=== PATIENT | male | born 1960 | race African-American/Black ===

== ENCOUNTER 2018-05-15 10:19 | Inpatient (IN) | payer OTHER ==
[~2018-05-15] VITALS: Ht 190.5 cm; Wt 102.2 kg
--- OUTSIDE RECORDS SUMMARY | 2018-05-15 10:23 | XMS REPORT | Clinical Summary ---
Author Author [facility] Organization [facility] Address Unknown Phone Unavailable Care Team Providers Care Ward Supervisor Name Role Phone Jeannette Perdomo MD PCP Allergies Comments Active Allergy Reactions Severity Noted Date Codeine Swelling 09/09/2016 Medications End Date Status Medication Sig Dispensed Refills Start Date Active carvedilol (COREG) 25 MG Take 25 mg by 0 tablet mouth 2 (two) times a day with meals. Active atorvastatin (LIPITOR) 40 Take 40 mg by 0 MG tablet mouth daily. Active omeprazole (PriLOSEC) 20 Take 20 mg by 0 MG capsule mouth daily. Active albuterol (PROAIR Inhale 2 0 HFA,PROVENTIL puffs every 4 HFA,VENTOLIN HFA) 90 (four) hours mcg/actuation inhaler as needed for wheezing. Active traZODone (DESYREL) 100 Take 100 mg 0 MG tablet by mouth nightly. Active guaifenesin/dextromethorp Take 20 mL by 0 razo (CHILD COUGH-CHEST mouth 2 (two) CONGEST DM ORAL) times a day as needed. Active warfarin (COUMADIN) 7.5 Take 1 tablet 30 tablet 1 04/06/201 MG tablet (7.5 mg 9 total) by mouth daily. 03/10/2018 Discontinued furosemide (LASIX) 20 mg Take 20 mg by 0 tablet mouth 2 (two) times a day. 03/06/2018 Discontinued lisinopril Take 20 mg by 0 (PRINIVIL,ZESTRIL) 20 mg mouth daily. tablet 04/06/2018 Discontinued amLODIPine (NORVASC) 5 mg Take 5 mg by 0 tablet mouth daily. 03/06/2018 Discontinued spironolactone Take 25 mg by 0 (ALDACTONE) 25 MG tablet mouth 2 (two) times a day. 04/06/2018 Discontinued fluticasone-salmeterol Inhale 1 puff 0 (ADVAIR) 250-50 mcg/dose 2 (two) times DISKUS a day. 12/22/2017 Discontinued warfarin (COUMADIN) 5 MG Take 5 mg by 0 tablet mouth daily. PT TAKES 5MG AND 1MG=TOTAL 6MG QD 12/22/2017 Discontinued warfarin (COUMADIN) 1 MG Take 1 mg by 0 tablet mouth daily. 05/24/2017 ipratropium-albuterol Take 3 mL by 540 mL 0 (DUO-NEB) 0.5-2.5 mg/mL nebulization 8 nebulizer every 4 (four) hours for 30 days. 05/25/2017 potassium chloride Take 2 60 capsule 0 (MICRO-K) 10 MEQ CR capsules (20 8 capsule mEq total) by mouth daily for 30 days. 12/28/2017 levoFLOXacin (LEVAQUIN) Take 1 tablet 6 tablet 0 500 MG tablet (500 mg 8 total) by mouth nightly for 6 days. 01/21/2018 ipratropium-albuterol Take 3 mL by 3 mL 2 (DUO-NEB) 0.5-2.5 mg/mL nebulization 8 nebulizer Every 4 hours while awake as needed (RT) for wheezing for up to 30 days. 01/21/2018 albuterol (PROAIR Inhale 2 18 g 11 HFA,PROVENTIL puffs every 6 8 HFA,VENTOLIN HFA) 90 (six) hours mcg/actuation inhaler as needed for wheezing for up to 30 days. 12/27/2017 methylPREDNISolone follow 21 tablet 0 (MEDROL, STACY,) 4 mg package 8 tablet directions 03/10/2018 Discontinued warfarin (COUMADIN) 4 MG Take 6 mg by 0 tablet mouth every morning. 04/06/2018 Discontinued predniSONE (DELTASONE) 20 Take 20 mg by 0 mg tablet mouth daily. 04/04/2018 Discontinued cefuroxime (CEFTIN) 500 Take 1 tablet 0 MG tablet by mouth 2 8 (two) times a day. FOR 10 DAYS 04/06/2018 Discontinued warfarin (COUMADIN) 2.5 Take 4 120 tablet 0 MG tablet tablets (10 8 mg total) by mouth daily for 30 days. 04/10/2018 lisinopril Take 1 tablet 30 tablet 0 (PRINIVIL,ZESTRIL) 5 mg (5 mg total) 8 tablet by mouth daily for 30 days. 04/09/2018 furosemide (LASIX) 20 mg Take 3 90 tablet 0 tablet tablets (60 8 mg total) by mouth daily for 30 days. 04/13/2018 benzonatate (TESSALON) Take 1 21 capsule 0 100 MG capsule capsule (100 9 mg total) by mouth 3 (three) times a day as needed for cough for up to 7 days. 05/07/2018 fluticasone-vilanterol Inhale 1 1 each 1 (BREO ELLIPTA) 100-25 inhalations 9 mcg/dose blister with once daily device powder for for 30 days. inhalation 04/12/2018 predniSONE (DELTASONE) 20 Take 1 tablet 5 tablet 0 mg tablet (20 mg total) 9 by mouth daily for 5 days. 05/07/2018 nicotine (NICODERM CQ) 21 Place 1 patch 30 patch 0 mg/24 hr on the skin 9 daily for 30 days. 05/06/2018 aspirin (ECOTRIN) 81 MG Take 1 tablet 30 tablet 0 enteric coated tablet (81 mg total) 9 by mouth daily for 30 days. Active Problems Problem Noted Date A-fib 04/05/2018 Subtherapeutic international normalized ratio (INR) 03/08/2018 Congestive heart failure 03/06/2018 Influenza A 04/24/2017 COPD (chronic obstructive pulmonary disease) 09/09/2016 Encounters Care Team Description Date Type Specialty Claude Interiano MD Teqwimuah, Remy, DO Al-Lahiq, Maha, MD COPD exacerbation (HCC) (Primary Dx); SOB (shortness of breath); Acute on chronic congestive heart failure, unspecified heart failure type (HCC) 04/04/2018 [facility] General Internal Medicine - Encounter 04/06/2018 Nelia Duran MD Yerramadha, Muralidhar Reddy, MD Acute on chronic combined systolic and diastolic congestive heart failure (HCC) (Primary Dx); Congestive heart failure, unspecified HF chronicity, unspecified heart failure type (HCC); Dyspnea, unspecified type; Chronic obstructive pulmonary disease, unspecified COPD type (HCC); Subtherapeutic anticoagulation; S/P MVR (mitral valve replacement); Essential hypertension, benign 03/06/2018 [facility] Internal Medicine - Encounter 03/10/2018 03/06/2018 Travel Yi Drummond MD Yerramadha, Muralidhar Reddy, MD COPD exacerbation (Primary Dx); Acute bronchitis, unspecified organism 12/19/2017 [facility] General Surgery - Encounter 12/22/2017 after 05/14/2017 Immunizations Name Dates Previously Given Next Due FLUCELVAX QUAD PF (0.5mL 12/22/2017, 04/15/2017 syringe) Pneumococcal Conjugate 04/15/2017 [facility] Social History Date Tobacco Use Types Packs/Day Years Used Current Every Day Smoker Cigarettes 0.25 40 Smokeless Tobacco: Never Used Tobacco Cessation: Ready to Quit: No; Counseling Given: Yes Alcohol Use Drinks/Week oz/Week Comments Yes 12 Glasses of 9.6 wine 4 Cans of beer Sex Assigned at Date Recorded Not on file Industry Job Start Date Occupation Not on file Not on file Not on file Travel End Travel History Travel Start No recent travel history available. Last Filed Vital Signs Time Taken Vital Sign Reading 04/06/2018 11:06 AM DONOR SERVICES COORDINATOR Blood Pressure 116/76 04/06/2018 11:06 AM DONOR SERVICES COORDINATOR Pulse 86 04/06/2018 11:06 AM DONOR SERVICES COORDINATOR Temperature 36.4 C (97.5 F) 04/06/2018 11:06 AM DONOR SERVICES COORDINATOR Respiratory Rate 16 04/06/2018 11:06 AM DONOR SERVICES COORDINATOR Oxygen Saturation 97% - Inhaled Oxygen - Concentration 04/06/2018 5:00 AM DONOR SERVICES COORDINATOR Weight 96.6 kg (213 lb) 04/04/2018 10:55 AM DONOR SERVICES COORDINATOR Height 188 cm (6' 2") 04/06/2018 5:00 AM DONOR SERVICES COORDINATOR Body Mass Index 27.35 Plan of Treatment Health Maintenance Due Date Last Done Comments SHINGLES VACCINES (1 of 06/06/2011 2) COLON CANCER SCREENING 04/15/2027 04/15/2017 INFLUENZA VACCINE Completed 12/22/2017, 04/15/2017 Implants Device Identifier Shelf Expiration Date Model / Serial / Lot Implanted Type Area Manufactur er Valve Valve Valve Valve Procedures Comments Procedure Name Priority Date/Time Associated Diagnosis PROTHROMBIN TIME WITH INR Routine 04/06/2018 4:45 AM DONOR SERVICES COORDINATOR PROTHROMBIN TIME WITH INR Routine 04/05/2018 9:26 AM DONOR SERVICES COORDINATOR ESTIMATED GFR Routine 04/05/2018 4:49 AM DONOR SERVICES COORDINATOR BASIC METABOLIC PANEL Routine 04/05/2018 4:49 AM DONOR SERVICES COORDINATOR HC COMPLETE BLD COUNT Routine 04/05/2018 W/AUTO DIFF 4:[address] ANGIOGRAM PE CHEST STAT 04/04/2018 5:10 PM DONOR SERVICES COORDINATOR XR CHEST 1 VW PORTABLE STAT 04/04/2018 1:17 PM DONOR SERVICES COORDINATOR RESPIRATORY PATHOGEN Routine 04/04/2018 PANEL 11:46 AM DONOR SERVICES COORDINATOR INFLUENZA ANTIGEN TEST, Routine 04/04/2018 REFLEX NEGATIVE TO RPP 11:46 AM DONOR SERVICES COORDINATOR ECG ED PRELIMINARY Routine 04/04/2018 INTERPRETATION 11:31 AM DONOR SERVICES COORDINATOR ESTIMATED GFR STAT 04/04/2018 11:23 AM DONOR SERVICES COORDINATOR B NATRIURETIC PEPTIDE STAT 04/04/2018 11:23 AM DONOR SERVICES COORDINATOR TROPONIN STAT 04/04/2018 11:23 AM DONOR SERVICES COORDINATOR HEPATIC FUNCTION PANEL STAT 04/04/2018 11:23 AM DONOR SERVICES COORDINATOR BASIC METABOLIC PANEL STAT 04/04/2018 11:23 AM DONOR SERVICES COORDINATOR PARTIAL THROMBOPLASTIN STAT 04/04/2018 TIME (PTT) 11:23 AM DONOR SERVICES COORDINATOR PROTHROMBIN TIME WITH INR STAT 04/04/2018 11:23 AM DONOR SERVICES COORDINATOR HC COMPLETE BLD COUNT STAT 04/04/2018 W/AUTO DIFF 11:23 AM DONOR SERVICES COORDINATOR ECG 12-LEAD STAT 04/04/2018 11:06 AM DONOR SERVICES COORDINATOR PROTHROMBIN TIME WITH INR Routine 03/10/2018 5:45 AM DONOR SERVICES COORDINATOR ANTI XA, UNFRACTIONATED Routine 03/10/2018 5:45 AM DONOR SERVICES COORDINATOR ESTIMATED GFR Routine 03/10/2018 4:26 AM DONOR SERVICES COORDINATOR HC COMPLETE BLD COUNT Routine 03/10/2018 W/AUTO DIFF 4:26 AM DONOR SERVICES COORDINATOR BASIC METABOLIC PANEL Routine 03/10/2018 4:26 AM DONOR SERVICES COORDINATOR ESTIMATED GFR Routine 03/09/2018 5:38 AM DONOR SERVICES COORDINATOR ANTI XA, UNFRACTIONATED Routine 03/09/2018 5:38 AM DONOR SERVICES COORDINATOR HC COMPLETE BLD COUNT Routine 03/09/2018 W/AUTO DIFF 5:38 AM DONOR SERVICES COORDINATOR BASIC METABOLIC PANEL Routine 03/09/2018 5:38 AM DONOR SERVICES COORDINATOR PROTHROMBIN TIME WITH INR Routine 03/09/2018 5:38 AM DONOR SERVICES COORDINATOR ANTI XA, UNFRACTIONATED Timed 03/08/2018 3:00 PM DONOR SERVICES COORDINATOR ANTI XA, UNFRACTIONATED Timed 03/08/2018 9:06 AM DONOR SERVICES COORDINATOR ESTIMATED GFR Routine 03/08/2018 2:10 AM DONOR SERVICES COORDINATOR HC COMPLETE BLD COUNT Routine 03/08/2018 W/AUTO DIFF 2:10 AM DONOR SERVICES COORDINATOR BASIC METABOLIC PANEL Routine 03/08/2018 2:10 AM DONOR SERVICES COORDINATOR PROTHROMBIN TIME WITH INR Routine 03/08/2018 2:10 AM DONOR SERVICES COORDINATOR ANTI XA, UNFRACTIONATED Routine 03/08/2018 2:10 AM DONOR SERVICES COORDINATOR ANTI XA, UNFRACTIONATED Routine 03/07/2018 7:14 PM DONOR SERVICES COORDINATOR ANTI XA, UNFRACTIONATED Timed 03/07/2018 8:34 AM DONOR SERVICES COORDINATOR ANTI XA, UNFRACTIONATED Routine 03/07/2018 1:33 AM DONOR SERVICES COORDINATOR MAGNESIUM LEVEL Routine 03/07/2018 1:33 AM DONOR SERVICES COORDINATOR ESTIMATED GFR Routine 03/07/2018 1:33 AM DONOR SERVICES COORDINATOR PROTHROMBIN TIME WITH INR Routine 03/07/2018 1:33 AM DONOR SERVICES COORDINATOR COMPREHENSIVE METABOLIC Routine 03/07/2018 PANEL 1:33 AM DONOR SERVICES COORDINATOR HC COMPLETE BLD COUNT Routine 03/07/2018 W/AUTO DIFF 1:33 AM DONOR SERVICES COORDINATOR ANTI XA, UNFRACTIONATED Routine 03/06/2018 6:55 PM DONOR SERVICES COORDINATOR ECHOCARDIOGRAM 2D Routine 03/06/2018 COMPLETE W MMODE SPECTRAL 5:25 PM DONOR SERVICES COORDINATOR COLOR DOPPLER ([id number]) TROPONIN Timed 03/06/2018 4:25 PM DONOR SERVICES COORDINATOR ANTI XA, UNFRACTIONATED Routine 03/06/2018 11:40 AM DONOR SERVICES COORDINATOR TROPONIN Timed 03/06/2018 11:40 AM DONOR SERVICES COORDINATOR XR CHEST 1 VW PORTABLE STAT 03/06/2018 9:24 AM DONOR SERVICES COORDINATOR ESTIMATED GFR STAT 03/06/2018 8:59 AM DONOR SERVICES COORDINATOR B NATRIURETIC PEPTIDE STAT 03/06/2018 8:59 AM DONOR SERVICES COORDINATOR TROPONIN STAT 03/06/2018 8:59 AM DONOR SERVICES COORDINATOR CREATINE KINASE, TOTAL STAT 03/06/2018 (CPK) 8:59 AM DONOR SERVICES COORDINATOR COMPREHENSIVE METABOLIC STAT 03/06/2018 PANEL 8:59 AM DONOR SERVICES COORDINATOR PARTIAL THROMBOPLASTIN STAT 03/06/2018 TIME (PTT) 8:59 AM DONOR SERVICES COORDINATOR PROTHROMBIN TIME WITH INR STAT 03/06/2018 8:59 AM DONOR SERVICES COORDINATOR HC COMPLETE BLD COUNT STAT 03/06/2018 W/AUTO DIFF 8:59 AM DONOR SERVICES COORDINATOR ECG 12-LEAD STAT 03/06/2018 8:52 AM DONOR SERVICES COORDINATOR ECG ED PRELIMINARY Routine 03/06/2018 INTERPRETATION 8:52 AM DONOR SERVICES COORDINATOR SMEAR REVIEW Routine 12/22/2017 5:18 AM CDT ESTIMATED GFR Routine 12/22/2017 5:18 AM CDT HC COMPLETE BLD COUNT Routine 12/22/2017 W/AUTO DIFF 5:18 AM CDT BASIC METABOLIC PANEL Routine 12/22/2017 5:18 AM CDT PROTHROMBIN TIME WITH INR Routine 12/22/2017 5:18 AM CDT SMEAR REVIEW Routine 12/21/2017 5:25 AM CDT ESTIMATED GFR Routine 12/21/2017 5:25 AM CDT MAGNESIUM LEVEL Routine 12/21/2017 5:25 AM CDT HC COMPLETE BLD COUNT Routine 12/21/2017 W/AUTO DIFF 5:25 AM CDT BASIC METABOLIC PANEL Routine 12/21/2017 5:25 AM CDT PROTHROMBIN TIME WITH INR Routine 12/21/2017 5:25 AM CDT XR CHEST 1 VW PORTABLE Routine 12/20/2017 6:12 AM CDT SMEAR REVIEW Routine 12/20/2017 4:18 AM CDT ESTIMATED GFR Routine 12/20/2017 4:18 AM CDT MAGNESIUM LEVEL Routine 12/20/2017 4:18 AM CDT PROTHROMBIN TIME WITH INR Routine 12/20/2017 4:18 AM CDT COMPREHENSIVE METABOLIC Routine 12/20/2017 PANEL 4:18 AM CDT HC COMPLETE BLD COUNT Routine 12/20/2017 W/AUTO DIFF 4:18 AM CDT HEMOGLOBIN A1C Routine 12/20/2017 4:10 AM CDT ESTIMATED GFR STAT 12/19/2017 8:20 PM CDT BASIC METABOLIC PANEL STAT 12/19/2017 8:20 PM CDT PHOSPHORUS LEVEL STAT 12/19/2017 8:20 PM CDT MAGNESIUM LEVEL STAT 12/19/2017 8:20 PM CDT IONIZED CALCIUM STAT 12/19/2017 8:20 PM CDT TROPONIN Routine 12/19/2017 6:50 PM CDT PROTHROMBIN TIME WITH INR STAT 12/19/2017 6:50 PM CDT ECG 12-LEAD Routine 12/19/2017 1:33 PM CDT XR CHEST 1 VW PORTABLE STAT 12/19/2017 1:32 PM CDT ESTIMATED GFR STAT 12/19/2017 1:08 PM CDT B NATRIURETIC PEPTIDE STAT 12/19/2017 1:08 PM CDT TROPONIN STAT 12/19/2017 1:08 PM CDT COMPREHENSIVE METABOLIC STAT 12/19/2017 PANEL 1:08 PM CDT HC COMPLETE BLD COUNT STAT 12/19/2017 W/AUTO DIFF 1:08 PM CDT ECG 12-LEAD STAT 12/19/2017 1:02 PM CDT ECG ED PRELIMINARY Routine 12/19/2017 INTERPRETATION 12:59 PM CDT CA CRITICAL CARE, E/M Routine 12/19/2017 30-74 MINUTES 12:59 PM CDT after 05/14/2017 Results * Prothrombin time with INR (04/06/2018 4:45 AM DONOR SERVICES COORDINATOR) Only the most recent of 12 results within the time period is included. Prothrombin time 30.6 (H) 11.5 - 14.5 sec [facility] INR 3.0 [facility] Comment: [facility] The International Normalized Ratio (INR) is a therapeutic monitoring tool for patients who are stable on oral anticoagulant therapy. An INR of 2.0-3.0 is suggested for deep vein thrombosis/pulmonary embolism. Specimen Blood Performing Organization Address [facility] Phone Number [facility] [address] [place] [address] [place] [address] PATHOLOGY AND GENOMIC MEDICINE [address] * Estimated GFR (04/05/2018 4:49 AM DONOR SERVICES COORDINATOR) Only the most recent of 12 results within the time period is included. Estimated GFR 86 mL/min/1.73 m2 [facility] Comment: [facility] CatergoryUnitsInte rpretation G1 >=90 Normal or high G2 60-89Mildly decreased [id number] Mildly to moderately decreased [id number] Moderately to severely decreased G4 15-29Severely decreased G5 <15Kidney failure The eGFR was calculated using the Chronic Kidney Disease Epidemiology Collaboration (CKD-EPI) equation. Interpretation is based on recommendations of the National Kidney Foundation-Kidney Disease Outcomes Quality Initiative (NKF-KDOQI) published in 2014. Specimen Plasma specimen Performing Organization Address [facility] Phone Number [address] [place] [address] PATHOLOGY AND [facility] MEDICINE [address] * CBC with platelet and differential (04/05/2018 4:49 AM DONOR SERVICES COORDINATOR) Only the most recent of 11 results within the time period is included. WBC 9.84 4.50 - 11.00 k/uL [facility] RBC 4.11 (L) 4.40 - 6.00 m/uL [facility] HGB 12.6 (L) 14.0 - 18.0 g/dL [facility] HCT 37.8 (L) 41.0 - 51.0 % [facility] MCV 92.0 82.0 - 100.0 fL [facility] MCH 30.7 27.0 - 34.0 pg [facility] MCHC 33.3 31.0 - 37.0 g/dL [facility] RDW - SD 46.9 37.0 - 55.0 fL [facility] MPV 9.6 8.8 - 13.2 fL [facility] Platelet count 231 150 - 400 k/uL [facility] Nucleated RBC 0.00 /100 WBC [facility] Neutrophils 85.7 (H) 39.0 - 69.0 % [facility] Lymphocytes 9.0 (L) 25.0 - 45.0 % [facility] Monocytes 4.7 0.0 - 10.0 % [facility] Eosinophils 0.0 0.0 - 5.0 % [facility] Basophils 0.1 0.0 - 1.0 % [facility] Specimen Blood Performing Organization Address City/[facility]/Zipcode Phone Number [facility] [place] [place] [id number] [place] [address] [place] [address] PATHOLOGY AND GENOMIC MEDICINE [facility] [id number] [place] [address] * Basic metabolic panel (04/05/2018 4:49 AM DONOR SERVICES COORDINATOR) Only the most recent of 8 results within the time period is included. Sodium 140 135 - 148 mEq/L [facility] Potassium 5.1 (H) 3.5 - 5.0 mEq/L [facility] Chloride 104 98 - 112 mEq/L [facility] CO2 27 24 - 31 mEq/L [facility] Anion gap 9@ANIO 7 - 15 mEq/L [facility] BUN 18 6 - 20 mg/dL [facility] Creatinine 1.10 0.70 - 1.20 mg/dL [facility] Glucose 145 (H) 65 - 99 mg/dL [facility] Calcium 8.9 8.3 - 10.2 mg/dL [facility] Specimen Plasma specimen Performing Organization Address City/State/Zipcode [place] [address] [place] [address] PATHOLOGY AND GENOMIC MEDICINE [facility] [address] [place] [address] [facility] * CT Angiogram Pe Chest (04/04/2018 5:10 PM DONOR SERVICES COORDINATOR) Addenda Addendum by Emil Arellano MD on 04/12/2018 11:13 AM ADDENDUM #1 CT scans were performed using radiation dose reduction techniques. Technical factors were evaluated and adjusted to ensure appropriate moderation of exposure.Automated dose management technology was applied to adjust radiation exposure while achieving a diagnostic quality image.CT imaging was performed with iterative reconstruction techniques and/or automated exposure control to reduce radiation dose. Narrative Performed At EXAM: CT ANGIOGRAM PE CHEST RADIANT DATE: 04/04/2018 4:56 PM COMPARISON: Noncontrast CT chest April 17, 2017, CTA chest March 08, 2017 CLINICAL DATA:PE r o TECHNIQUE: A CT angiogram (CTA) of the pulmonary arteries and chest was performed.During bolus infusion of intravenous contrast, thin-section contiguous transaxial images were obtained through the thorax.In addition, multiplanar and three dimensional (3D) reformations through the pulmonary arterial tree were generated from the acquisition scanner and reviewed. IMPRESSION: No pulmonary emboli are identified. There is no regional adenopathy. Status post mitral valve replacement. Limited evaluation of the upper abdomen is unremarkable. Mild/moderate emphysematous changes are present. There is dependent atelectasis at the left lung base. Lungs are otherwise clear. Trace pleural effusion bilaterally, tracking along the major fissure on the right. The appearance is similar to prior exam. No suspicious osseous lesions are seen. [facility]-[id number] Procedure Note Interface, Radiology Results Incoming - 04/04/2018 6:21 PM DONOR SERVICES COORDINATOR EXAM: CT ANGIOGRAM PE CHEST DATE: 04/04/2018 4:56 PM COMPARISON: Noncontrast CT chest April 17, 2017, CTA chest March 08, 2017 CLINICAL DATA: PE r o TECHNIQUE: A CT angiogram (CTA) of the pulmonary arteries and chest was performed. During bolus infusion of intravenous contrast, thin-section contiguous transaxial images were obtained through the thorax. In addition, multiplanar and three dimensional (3D) reformations through the pulmonary arterial tree were generated from the acquisition scanner and reviewed. IMPRESSION: No pulmonary emboli are identified. There is no regional adenopathy. Status post mitral valve replacement. Limited evaluation of the upper abdomen is unremarkable. Mild/moderate emphysematous changes are present. There is dependent atelectasis at the left lung base. Lungs are otherwise clear. Trace pleural effusion bilaterally, tracking along the major fissure on the right. The appearance is similar to prior exam. No suspicious osseous lesions are seen. [facility]-[id number] Performing Organization Address [facility] Phone Number [employer] [address] [place] [address] * XR Chest 1 Vw Portable (04/04/2018 1:17 PM DONOR SERVICES COORDINATOR) Only the most recent of 4 results within the time period is included. Narrative Performed At EXAMINATION:XR CHEST 1 VW PORTABLE RADIANT CLINICAL HISTORY: 57 years MaleSOBCHF COPD COMPARISON:03/06/2018 IMPRESSION: 1.There are postoperative changes related to mitral valve replacement. 2.The heart is slightly enlarged. 3.There is no evidence pulmonary edema. There are no focal consolidations. Pleural thickening at the left costophrenic sulcus is unchanged. 4.Left cervical rib. [facility]-[id number] Procedure Note Hm Interface, Radiology Results Incoming - 04/04/2018 1:25 PM DONOR SERVICES COORDINATOR EXAMINATION: XR CHEST 1 VW PORTABLE CLINICAL HISTORY: 57 years Male SOB CHF COPD COMPARISON: 03/06/2018 IMPRESSION: 1. There are postoperative changes related to mitral valve replacement. 2. The heart is slightly enlarged. 3. There is no evidence pulmonary edema. There are no focal consolidations. Pleural thickening at the left costophrenic sulcus is unchanged. 4. Left cervical rib. [facility]-[id number] Performing Organization Address [facility] Phone Number [employer] [address] [place] [address] * Respiratory pathogen panel (04/04/2018 11:46 AM DONOR SERVICES COORDINATOR) Respiratory pathogen Negative for all pathogens [facility] panel [facility]: [facility] Negative for Adenovirus Negative for Coronavirus HKU1 Negative for Coronavirus NL63 Negative for Coronavirus 229E Negative for Coronavirus OC43 Negative for Human Metapneumovirus Negative for Rhinovirus/Enterovirus Negative for Influenza A Negative for Influenza A/H1 Negative for Influenza A/H3 Negative for Influenza A/H1-2009 Negative for Influenza B Negative for Parainfluenza Virus 1 Negative for Parainfluenza Virus 2 Negative for Parainfluenza Virus 3 Negative for Parainfluenza Virus 4 Negative for Respiratory Syncytial Virus Negative for Bordetella pertussis Negative for Chlamydophila pneumoniae Negative for Mycoplasma pneumoniae This real-time PCR assay detects the presence of nucleic acids (RNA or DNA) for the respiratory pathogens listed. A result of "Not-detected" does not exclude the possibility of the presence of one or more pathogens at concentrations less than the detectable limits of the assay. Comment: Specimen Information Specimen Source: Nares Specimen Site: Not otherwise specified Specimen Nares - Not otherwise specified Performing Organization Address [facility]/Zipcode Phone Number [facility] DEPARTMENT [address] [place] [address] PATHOLOGY AND GENOMIC MEDICINE [address] * Influenza antigen test, reflex negative to RPP (04/04/2018 11:46 AM DONOR SERVICES COORDINATOR) Influenza antigen Negative for Influenza A/B [facility] Comment: Specimen Information Specimen Source: Nares Specimen Site: Not otherwise specified Specimen Nares - Not otherwise specified Performing Organization Address [facility] Cent[facility] Phone Number [facility] DEPARTMENT [id number] [place] [address] [place] [address] PATHOLOGY AND GENOMIC MEDICINE [address] [address] * ECG ED Preliminary Interpretation - Not an Order (04/04/2018 11:31 AM DONOR SERVICES COORDINATOR) Only the most recent of 3 results within the time period is included. Narrative Performed At Claude Interiano MD 04/04/20184:30 PM ECG ED Preliminary Interpretation - Not an Order Performed by: Claude Interiano MD Authorized by: Claude Interiano MD ECG reviewed by ED Physician in the absence of a edi coordinator: yes Previous ECG: Previous ECG:Compared to current Comparison ECG info:03/06/18 Interpretation: Interpretation: normal Rate: ECG rate:86 ECG rate assessment: normal Rhythm: Rhythm: sinus rhythm Ectopy: Ectopy: none QRS: QRS axis:Normal QRS intervals:Normal Conduction: Conduction: normal ST segments: ST segments:Normal T waves: T waves: normal Other findings: Other findings: LVH Comments: Read at 11:06 AM * Troponin (04/04/2018 11:23 AM DONOR SERVICES COORDINATOR) Only the most recent of 6 results within the time period is included. Troponin <0.300 0.000 - 0.300 ng/mL [facility] Comment: [facility] 0.30 - 1.49 ng/mlMay indicate increased risk of acute coronary syndrome. >=1.5 ng/ml Consistent with acute myocardial infarction. The diagnostic value of a single normal or non-diagnostic result is questionable.Serial samples at 2-6 hour intervals are required to rule out acute myocardial injury. Specimen Plasma specimen Performing Organization Address [facility] Phone Number [address] [place] [address] PATHOLOGY AND [facility] MEDICINE [address] * Partial thromboplastin time, activated (04/04/2018 11:23 AM DONOR SERVICES COORDINATOR) Only the most recent of 2 results within the time period is included. PTT 45.1 (H) 23.0 - 36.0 sec [facility] Comment: [facility] PTT therapeutic range for unfractionated heparin is 61.0-112.0 seconds which corresponds to Anti-Xa 0.3-0.7 U/ml. Specimen Blood Performing Organization Address [facility] Phone Number [address] [place] [address] PATHOLOGY AND [facility] [address] * B natriuretic peptide (04/04/2018 11:23 AM DONOR SERVICES COORDINATOR) Only the most recent of 3 results within the time period is included. BNP 21 0 - 100 pg/mL [facility] Specimen Blood Performing Organization Address [facility] Phone Number [address] [place] [address] PATHOLOGY AND GENOMIC MEDICINE [address] * Hepatic function panel (04/04/2018 11:23 AM DONOR SERVICES COORDINATOR) Albumin 3.7 3.5 - 5.0 g/dL [facility] Total bilirubin 0.3 0.0 - 1.2 mg/dL [facility] Bilirubin direct <0.1 0.0 - 0.3 mg/dL [facility] Alkaline phosphatase 74 40 - 129 U/L [facility] Protein 6.9 6.3 - 8.3 g/dL [facility] Comment: [facility] Tok 4.6-7.0 g/dL 1 week 4.4-7.6 g/dL 7 months-1year 5.1-7.3 g/dL 1-2 years5.6-7 .5 g/dL >3 years6.0-8 .0 g/dL 18-150 6.3-8.3 g/dL ALT 25 5 - 50 U/L [facility] AST 27 10 - 50 U/L [facility] Specimen Plasma specimen Performing Organization Address [facility] Phone Number [facility] DEPARTMENT OF [address] [place] [address] [place] [address] PATHOLOGY AND GENOMIC MEDICINE [address] [place] [address] [facility] * ECG 12 lead (04/04/2018 11:06 AM DONOR SERVICES COORDINATOR) Only the most recent of 4 results within the time period is included. Ventricular rate 86 [facility] Atrial rate 86 [facility] CA interval 152 [facility] QRSD interval 106 [facility] QT interval 398 [facility] QTC interval 476 [facility] P axis 1 81 [facility] QRS axis 1 84 [facility] T wave axis 86 [facility] EKG impression Normal sinus rhythm-Minimal [facility] voltage criteria for LVH, may be normal variant-Borderline ECG-In automated comparison with ECG of 06-MAR-2018 08:52,-premature ventricular complexes are no longer present- Performing Organization Address City/[facility] Phone Number [facility] MUSE [address] [place] [address] * Anti Xa, unfractionated (03/10/2018 5:45 AM DONOR SERVICES COORDINATOR) Only the most recent of 10 results within the time period is included. Anti Xa, unfractionated 0.57Comment: Therapeutic 0.30 - 0.70 U/mL [facility] Range: 0.30 - 0.70 U/mL [facility] Specimen Blood Performing Organization Address [facility] Phone Number [address] [place] [address] PATHOLOGY AND GENOMIC MEDICINE [address] * Magnesium level (03/07/2018 1:33 AM DONOR SERVICES COORDINATOR) Only the most recent of 4 results within the time period is included. Magnesium 2.0 1.6 - 2.6 mg/dL [facility] Specimen Plasma specimen Performing Organization Address [facility] Phone Number [address] [place] [address] PATHOLOGY AND [facility] [address] * Comprehensive metabolic panel (03/07/2018 1:33 AM DONOR SERVICES COORDINATOR) Only the most recent of 4 results within the time period is included. Sodium 140 135 - 148 mEq/L [facility] Potassium 5.2 (H) 3.5 - 5.0 mEq/L [facility] Chloride 101 98 - 112 mEq/L [facility] CO2 31 24 - 31 mEq/L [facility] Anion gap 8@ANIO 7 - 15 mEq/L [facility] BUN 15 6 - 20 mg/dL [facility] Creatinine 1.00 0.70 - 1.20 mg/dL [facility] Glucose 131 (H) 65 - 99 mg/dL [facility] Calcium 9.1 8.3 - 10.2 mg/dL [facility] Protein 7.0 6.3 - 8.3 g/dL [facility] Comment: [facility] Tok 4.6-7.0 g/dL 1 week 4.4-7.6 g/dL 7 months-1year 5.1-7.3 g/dL 1-2 years5.6-7 .5 g/dL >3 years6.0-8 .0 g/dL 18-150 6.3-8.3 g/dL Albumin 3.6 3.5 - 5.0 g/dL [facility] A/G ratio 1.1 0.7 - 3.8 [facility] Alkaline phosphatase 78 40 - 129 U/L [facility] AST 20 10 - 50 U/L [facility] ALT 29 5 - 50 U/L [facility] Total bilirubin 0.5 0.0 - 1.2 mg/dL [facility] Specimen Plasma specimen Performing Organization Address City/State/Zipcode Phone Number [facility] [place] [id number] [place] [address] [place] [address] PATHOLOGY AND GENOMIC MEDICINE [address] [place], [place] [id number] [place] [address] * Echocardiogram complete w contrast and 3D if needed (03/06/2018 5:25 PM DONOR SERVICES COORDINATOR) Velocity Ratio (V1/V2) 0.87 m/s [facility] IVS,d 0.96 cm [facility] Ao root annulus 3.69 cm [facility] EF 44.67 % [facility] LVPWD,d 1.44 cm [facility] AoV Mean PG 2.60 mmHg [facility] AV LVOT peak gradient 3.64 mmHg [facility] MV valve area p 1/2 2.46 cm2 [facility] method E/A ratio 1.12 [facility] E wave decelartion time 256.26 msec [facility] LVOT Diam,S 2.21 cm [facility] LVOT area 3.83 cm2 [facility] LVOT Vmax 0.95 m/s [facility] LVOT VTI 0.16 m [facility] AoV Peak PG 4.75 mmHg [facility] MV Peak E Natalio 1.29 m/s [facility] MV stenosis pressure 1/2 89.31 ms [facility] time MV Peak A Natalio 1.15 m/s [facility] LV Vol,s A2C 30.17 mL [facility] LV Vol,d A2C 61.57 mL [facility] AoV Area, Vmax 3.35 cm2 [facility] AoV Area, VTI 3.31 cm2 [facility] AoV Vmax 1.09 m/s [facility] LA Area d A4C 38 cm2 [facility] LV,d 4.49 cm [facility] LV,s 3.35 cm [facility] LV Vol,d A4C 51.63 ml [facility] LV Vol,s A4C 28.19 ml [facility] RVSP (TR) 28.59 mmHg [facility] TR Vpeak 2.60 mm/s [facility] MV E A ratio 1.12 [facility] RA pressure 5.00 mmHg [facility] TR pk grad 24 mmHg [facility] RVSP 28.59 mmHg [facility] LV SYS VOL 41.82 ml [facility] LV MARR VOL 75.58 ml [facility] LA diam s 3.10 cm [facility] LA Vol MOD A4C 38.15 ml [facility] LV SV Teich 2D 33.76 ml [facility] LVOT SI 27.05 ml/m2 [facility] AoV Cusp sep 2.03 [facility] Aortic Root 3.70 cm [facility] AoV Vmn 0.78 [facility] IVS s 2D 1.32 [facility] LA Ao Ratio Mmode 0.83 [facility] E prime lat 0.08 [facility] E geovanny sept 0.06 [facility] PV acc T slope 8.60 [facility] PV AT 83.04 msec [facility] AoV VTI 0.19 m [facility] LV EF,A2C 50.99 % [facility] LV EF,A4C 45.40 % [facility] LV EF,BP 45.76 % [facility] [place],d A2C 6.05 cm [facility] [place],d A4C 5.94 cm [facility] [place],s A2C 5.35 cm [facility] [place],s A4C 4.61 cm [facility] LV SV,A2C 31.40 % [facility] LV SV,A4C 23.44 % [facility] LV Vol,d BP 56.43 ml [facility] LV Vol,s BP 30.61 nl [facility] LVOT Vmn 0.64 [facility] Pt Size 190.50 [facility] Pt Wt 98.43 [facility] LVOT mean grad 1.87 mmHg [facility] LVPW s PLAX 1.55 cm [facility] MV Decel slope 5.03 m/s2 [facility] Narrative Performed At [facility] Left ventricular systolic function is mildly impaired. There is mild left ventricular concentric hypertrophy. Left Ventricular ejection fraction is 45 - 50%. 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 Unable to assess diastolic filling. Performing Organization Address City/State/Zipcode Phone Number [facility] [address] [place] [address] * Creatine kinase, total (CPK) (03/06/2018 8:59 AM DONOR SERVICES COORDINATOR) Creatine kinase 90 39 - 308 U/L [facility] Specimen Plasma specimen Performing Organization Address [facility]/Zipcode Phone Number [address] [place] [address] PATHOLOGY AND GENOMIC MEDICINE [address] * Smear review (12/22/2017 5:18 AM CDT) Only the most recent of 3 results within the time period is included. Platelet slide review Neha adequate [facility] DEPARTMENT PATHOLOGY AND GENOMIC MEDICINE Performing Organization Address [facility] Phone Number [address] [place] [address] PATHOLOGY AND GENOMIC MEDICINE * Hemoglobin A1c (12/20/2017 4:10 AM CDT) Hemoglobin A1C 5.7 4.0 - 6.0 % [facility] DEPARTMENT OF Comment: PATHOLOGY AND GENOMIC MEDICINE Less than 6% - Goal of therapy for Type II Diabetes Less than 7%-Goal of therapy for Type I Diabetes Less than 8%-Accepta ble control for Type I or Type II Diabetes Greater than 8%-Unacceptabl e control; action indicated. ([id number]) Specimen Blood Performing Organization Address [facility] Phone Number [address] [place] [address] PATHOLOGY AND GENOMIC MEDICINE * Phosphorus level (12/19/2017 8:20 PM CDT) Phosphorus 2.5 2.4 - 4.5 mg/dL [facility] DEPARTMENT OF PATHOLOGY AND GENOMIC MEDICINE Specimen Plasma specimen Performing Organization Address [facility] Phone Number [address] [place] [address] PATHOLOGY AND GENOMIC MEDICINE * Ionized calcium (12/19/2017 8:20 PM CDT) pH 7.36 [facility] DEPARTMENT OF PATHOLOGY AND GENOMIC MEDICINE Ionized calcium 1.13 1.11 - 1.32 mmol/L [facility] OF PATHOLOGY AND GENOMIC MEDICINE Specimen Plasma specimen Performing Organization Address City/State/Zipcode Phone Number [address] [place] [address] PATHOLOGY AND GENOMIC MEDICINE * CRITICAL CARE (12/19/2017 12:59 PM CDT) Narrative Performed At Yi Drummond MD 12/19/20172:53 PM Critical Care Performed by: YI DRUMMOND Authorized by: YI DRUMMOND Critical care provider statement: Critical care time (minutes):45 Critical care time was exclusive of:Separately billable procedures and treating other patients Critical care was necessary to treat or prevent imminent or life-threatening deterioration of the following conditions:Respiratory failure Critical care was time spent personally by me on the following activities:Development of treatment plan with patient or surrogate, discussions with primary provider, evaluation of patient's response to treatment, examination of patient, obtaining history from patient or surrogate, re-evaluation of patient's condition, pulse oximetry, ordering and review of radiographic studies, ordering and review of laboratory studies, ordering and performing treatments and interventions and review of old charts Lloyd 'yes' if you are taking over critical care for this patient from another provider.: no after 05/14/2017 Insurance Payer Benefit Subscriber ID Type Phone Address Plan / Group [employer] MEDICA[employer] xxxxxxxxx HMO [employer] [place] (Home) [place] [address] Advance Directives Patient has advance care planning documents, and code status on file. For more i nformation, please contact: Thierry Almendarez [address] [place] [address] Date Inactivated Comments Code Status Date Activated 03/10/2018 8:18 PM Full Code 03/06/2018 1:42 PM Code Status decision reached by: Patient 12/22/2017 2:07 PM Full Code 12/19/2017 5:33 PM Code Status decision reached by: Patient
--- OUTSIDE RECORDS SUMMARY | 2018-05-15 10:23 | XMS REPORT ---
Author Author [facility] Address Unknown Phone Unavailable Care Team Providers Care Tower Switch Operator Name Role Phone Unavailable Unavailable Payers Payer Name Policy Type Policy Number Effective Date Expiration Date Problems This patient has no known problems. Allergies, Adverse Reactions, Alerts Allergy Name Allergy Type Status Severity Reaction(s) Onset Date Inactive Date Treating Clinician Comments chrissy Cordova 2017-09-27 00:00:00 Medications This patient has no known medications.
[2018-05-15] MEDS ORDERED: LEVALBUTEROL HCL SOLN NEBU 1.25 MG/3 ML NEB INH ONE (10:45)
[2018-05-15] MEDS ORDERED: IPRATROPIUM BROMIDE 0.02% 2.5 ML NEB NEB ONE (10:45)
[2018-05-15] MEDS ORDERED: METHYLPREDNISOLONE SOD SUCC 125 MG/2ML VIAL IV ONE (10:45)
[2018-05-15 11:08] LABS: BASOPHILS # (AUTO) 0.1 (0.0-0.1); BASOPHILS % 0.4 % (0.0-1.0); BILIRUBIN,URINE NEGATIVE (NEGATIVE); CLARITY,URINE CLEAR (CLEAR); COLOR,URINE YELLOW (YELLOW); EOSINOPHILS % 0.1 % (0.0-6.0); HEMATOCRIT 40.8 % (38.2-49.6); HEMOGLOBIN 13.5 g/dL (14.0-18.0); KETONES,URINE NEGATIVE (NEGATIVE); LEUKOCYTE ESTERASE ,URINE NEGATIVE (NEGATIVE); LYMPHOCYTES # (AUTO) 1.2 (1.0-3.2); LYMPHOCYTES % 8.2 % (18.0-39.1); MEAN CORPUSCULAR HEMOGLOBIN 30.5 pg (28-32); MEAN CORPUSCULAR HGB CONC 33.1 g/dL (31-35); MEAN CORPUSCULAR VOLUME 92.1 fL (81-99); MONOCYTES # (AUTO) 1.1 (0.2-0.8); MONOCYTES % 7.9 % (4.4-11.3); NEUTROPHILS # (AUTO) 11.9 (2.1-6.9); NEUTROPHILS % 82.9 % (38.7-80.0); NITRITE,URINE NEGATIVE (NEGATIVE); PLATELET COUNT 239 x10e3/uL (140-360); PROTEIN,URINE DIPSTICK NEGATIVE (NEGATIVE); RED BLOOD COUNT 4.43 x10e6/uL (4.3-5.7); RED CELL DISTRIBUTION WIDTH 13.4 % (11.7-14.4); URINE UROBILINOGEN 0.2 mg/dL (0.2 - 1)
[2018-05-15 11:11] LABS: INR 1.33; PROTHROMBIN TIME 17.6 seconds (11.9-14.5)
[2018-05-15 11:12] LABS: PARTIAL THROMBOPLASTIN TIME 38.1 seconds (23.8-35.5)
[2018-05-15 11:16] LABS: ALANINE AMINOTRANSFERASE 14 IU/L (0-55); ALBUMIN 3.4 g/dL (3.5-5.0); ALBUMIN/GLOBULIN RATIO 0.9 (0.8-2.0); ALKALINE PHOSPHATASE 77 IU/L (40-150); ANION GAP 11.6 mmol/L (8-16); BLOOD UREA NITROGEN 11 mg/dL (7-26); BUN/CREATININE RATIO 12 (6-25); CALCIUM 9.1 mg/dL (8.4-10.2); CARBON DIOXIDE 27 mmol/L (22-29); CHLORIDE 103 mmol/L (98-107); CREATINE KINASE 73 IU/L (30-200); CREATININE, SERUM 0.92 mg/dL (0.72-1.25); EST GLOMERULAR FILTRATION RATE > 60 ML/MIN (60-); GLUCOSE 110 mg/dL (74-118); MAGNESIUM 1.9 MG/DL (1.3-2.1); POTASSIUM 3.6 mmol/L (3.5-5.1); SODIUM 138 mmol/L (136-145)
[2018-05-15 11:26] LABS: EPITHELIAL CELLS,URINE RARE /LPF
[2018-05-15 11:42] LABS: B-TYPE NATRIURETIC PEPTIDE2 85.4 pg/mL (0-100)
--- NOTE | 2018-05-15 12:29 | Diagnostic Imaging Report ---
EXAMINATION: CHEST SINGLE (PORTABLE) INDICATION: Shortness of breath. COMPARISON: None FINDINGS: TUBES and LINES: None. LUNGS: Prominence of the pulmonary vasculature with cephalization bilaterally. Increased density in the left lower hemithorax may represent atelectasis versus consolidation. Right basilar subsegmental atelectasis. PLEURA: Bilateral small pleural effusions. No pneumothorax. HEART AND MEDIASTINUM: The cardiomediastinal silhouette is mildly enlarged. Cardiac valve. BONES AND SOFT TISSUES: No acute osseous lesion. UPPER ABDOMEN: No free air under the diaphragm. IMPRESSION: 1. Findings suggestive of bilateral pulmonary venous congestion. 2. Increased density in the lower left hemithorax may represent examination of pleural effusion, and atelectasis, however, cannot exclude consolidation in the proper clinical setting. Signed by: Dr. Mickey Mcnair M.D. on 05/15/2018 12:26 PM
[2018-05-15] MEDS ORDERED: HYDROCODONE/APAP 7.5MG-325MG 1 EA TAB PO NR (14:15)
[2018-05-15] MEDS ORDERED: ONDANSETRON HCL INJ 2MG/ML 2ML 2 MG/ML VIAL IV PRN (15:00)
[2018-05-15] MEDS: AZITHROMYCIN 500MG/NS 250 ML 250 ML IV SCH (15:07)
[2018-05-15] MEDS: FAMOTIDINE 20 MG/2 ML VIAL IV SCH (15:07)
--- OUTSIDE RECORDS SUMMARY | 2018-05-15 15:09 | XMS REPORT | Clinical Summary ---
Author Author [employer] Organization [employer] Address Unknown Phone Unavailable Care Team Providers Care Solar Engineer Name Role Phone Jeannette Perdomo MD PCP [...] failure, unspecified heart failure type (HCC) 04/04/2018 [facility] General Internal Medicine - Encounter 04/06/2018 Nelia Duran MD Yerramadha, Muralidhar Reddy, MD Acute on chronic combined systolic and diastolic congestive heart failure (HCC) (Primary Dx); Congestive heart failure, unspecified HF chronicity, unspecified heart failure type (HCC); Dyspnea, unspecified type; Chronic obstructive pulmonary disease, unspecified COPD type (HCC); Subtherapeutic anticoagulation; S/P MVR (mitral valve replacement); Essential hypertension, benign 03/06/2018 [facility] Internal Medicine - Encounter 03/10/2018 03/06/2018 Travel Yi Drummond MD Yerramadha, Muralidhar Reddy, MD COPD exacerbation (Primary Dx); Acute bronchitis, unspecified organism 12/19/2017 [facility] General Surgery - Encounter 12/22/2017 after 05/14/2017 [...] Taken Vital Sign Reading 04/06/2018 11:06 AM DISTRICT CAPTAIN Blood Pressure 116/76 04/06/2018 11:06 AM DISTRICT CAPTAIN Pulse 86 04/06/2018 11:06 AM DISTRICT CAPTAIN Temperature 36.4 C (97.5 F) 04/06/2018 11:06 AM DISTRICT CAPTAIN Respiratory Rate 16 04/06/2018 11:06 AM DISTRICT CAPTAIN Oxygen Saturation 97% - Inhaled Oxygen - Concentration 04/06/2018 5:00 AM DISTRICT CAPTAIN Weight 96.6 kg (213 lb) 04/04/2018 10:55 AM DISTRICT CAPTAIN Height 188 cm (6' 2") 04/06/2018 5:00 AM DISTRICT CAPTAIN Body Mass Index 27.35 Plan of Treatment [...] TIME WITH INR Routine 04/06/2018 4:45 AM DISTRICT CAPTAIN PROTHROMBIN TIME WITH INR Routine 04/05/2018 9:26 AM DISTRICT CAPTAIN ESTIMATED GFR Routine 04/05/2018 4:49 AM DISTRICT CAPTAIN BASIC METABOLIC PANEL Routine 04/05/2018 4:49 AM DISTRICT CAPTAIN HC COMPLETE BLD COUNT Routine 04/05/2018 W/AUTO DIFF 4:[address] ANGIOGRAM PE CHEST STAT 04/04/2018 5:10 PM DISTRICT CAPTAIN XR CHEST 1 VW PORTABLE STAT 04/04/2018 1:17 PM DISTRICT CAPTAIN RESPIRATORY PATHOGEN Routine 04/04/2018 PANEL 11:46 AM DISTRICT CAPTAIN INFLUENZA ANTIGEN TEST, Routine 04/04/2018 REFLEX NEGATIVE TO RPP 11:46 AM DISTRICT CAPTAIN ECG ED PRELIMINARY Routine 04/04/2018 INTERPRETATION 11:31 AM DISTRICT CAPTAIN ESTIMATED GFR STAT 04/04/2018 11:23 AM DISTRICT CAPTAIN B NATRIURETIC PEPTIDE STAT 04/04/2018 11:23 AM DISTRICT CAPTAIN TROPONIN STAT 04/04/2018 11:23 AM DISTRICT CAPTAIN HEPATIC FUNCTION PANEL STAT 04/04/2018 11:23 AM DISTRICT CAPTAIN BASIC METABOLIC PANEL STAT 04/04/2018 11:23 AM DISTRICT CAPTAIN PARTIAL THROMBOPLASTIN STAT 04/04/2018 TIME (PTT) 11:23 AM DISTRICT CAPTAIN PROTHROMBIN TIME WITH INR STAT 04/04/2018 11:23 AM DISTRICT CAPTAIN HC COMPLETE BLD COUNT STAT 04/04/2018 W/AUTO DIFF 11:23 AM DISTRICT CAPTAIN ECG 12-LEAD STAT 04/04/2018 11:06 AM DISTRICT CAPTAIN PROTHROMBIN TIME WITH INR Routine 03/10/2018 5:45 AM DISTRICT CAPTAIN ANTI XA, UNFRACTIONATED Routine 03/10/2018 5:45 AM DISTRICT CAPTAIN ESTIMATED GFR Routine 03/10/2018 4:26 AM DISTRICT CAPTAIN HC COMPLETE BLD COUNT Routine 03/10/2018 W/AUTO DIFF 4:26 AM DISTRICT CAPTAIN BASIC METABOLIC PANEL Routine 03/10/2018 4:26 AM DISTRICT CAPTAIN ESTIMATED GFR Routine 03/09/2018 5:38 AM DISTRICT CAPTAIN ANTI XA, UNFRACTIONATED Routine 03/09/2018 5:38 AM DISTRICT CAPTAIN HC COMPLETE BLD COUNT Routine 03/09/2018 W/AUTO DIFF 5:38 AM DISTRICT CAPTAIN BASIC METABOLIC PANEL Routine 03/09/2018 5:38 AM DISTRICT CAPTAIN PROTHROMBIN TIME WITH INR Routine 03/09/2018 5:38 AM DISTRICT CAPTAIN ANTI XA, UNFRACTIONATED Timed 03/08/2018 3:00 PM DISTRICT CAPTAIN ANTI XA, UNFRACTIONATED Timed 03/08/2018 9:06 AM DISTRICT CAPTAIN ESTIMATED GFR Routine 03/08/2018 2:10 AM DISTRICT CAPTAIN HC COMPLETE BLD COUNT Routine 03/08/2018 W/AUTO DIFF 2:10 AM DISTRICT CAPTAIN BASIC METABOLIC PANEL Routine 03/08/2018 2:10 AM DISTRICT CAPTAIN PROTHROMBIN TIME WITH INR Routine 03/08/2018 2:10 AM DISTRICT CAPTAIN ANTI XA, UNFRACTIONATED Routine 03/08/2018 2:10 AM DISTRICT CAPTAIN ANTI XA, UNFRACTIONATED Routine 03/07/2018 7:14 PM DISTRICT CAPTAIN ANTI XA, UNFRACTIONATED Timed 03/07/2018 8:34 AM DISTRICT CAPTAIN ANTI XA, UNFRACTIONATED Routine 03/07/2018 1:33 AM DISTRICT CAPTAIN MAGNESIUM LEVEL Routine 03/07/2018 1:33 AM DISTRICT CAPTAIN ESTIMATED GFR Routine 03/07/2018 1:33 AM DISTRICT CAPTAIN PROTHROMBIN TIME WITH INR Routine 03/07/2018 1:33 AM DISTRICT CAPTAIN COMPREHENSIVE METABOLIC Routine 03/07/2018 PANEL 1:33 AM DISTRICT CAPTAIN HC COMPLETE BLD COUNT Routine 03/07/2018 W/AUTO DIFF 1:33 AM DISTRICT CAPTAIN ANTI XA, UNFRACTIONATED Routine 03/06/2018 6:55 PM DISTRICT CAPTAIN ECHOCARDIOGRAM 2D Routine 03/06/2018 COMPLETE W MMODE SPECTRAL 5:25 PM DISTRICT CAPTAIN COLOR DOPPLER ([id number]) TROPONIN Timed 03/06/2018 4:25 PM DISTRICT CAPTAIN ANTI XA, UNFRACTIONATED Routine 03/06/2018 11:40 AM DISTRICT CAPTAIN TROPONIN Timed 03/06/2018 11:40 AM DISTRICT CAPTAIN XR CHEST 1 VW PORTABLE STAT 03/06/2018 9:24 AM DISTRICT CAPTAIN ESTIMATED GFR STAT 03/06/2018 8:59 AM DISTRICT CAPTAIN B NATRIURETIC PEPTIDE STAT 03/06/2018 8:59 AM DISTRICT CAPTAIN TROPONIN STAT 03/06/2018 8:59 AM DISTRICT CAPTAIN CREATINE KINASE, TOTAL STAT 03/06/2018 (CPK) 8:59 AM DISTRICT CAPTAIN COMPREHENSIVE METABOLIC STAT 03/06/2018 PANEL 8:59 AM DISTRICT CAPTAIN PARTIAL THROMBOPLASTIN STAT 03/06/2018 TIME (PTT) 8:59 AM DISTRICT CAPTAIN PROTHROMBIN TIME WITH INR STAT 03/06/2018 8:59 AM DISTRICT CAPTAIN HC COMPLETE BLD COUNT STAT 03/06/2018 W/AUTO DIFF 8:59 AM DISTRICT CAPTAIN ECG 12-LEAD STAT 03/06/2018 8:52 AM DISTRICT CAPTAIN ECG ED PRELIMINARY Routine 03/06/2018 INTERPRETATION 8:52 AM DISTRICT CAPTAIN SMEAR REVIEW Routine 12/22/2017 5:18 AM CDT [...] PRELIMINARY Routine 12/19/2017 INTERPRETATION 12:59 PM CDT [place] CRITICAL CARE, E/M Routine 12/19/2017 30-74 MINUTES 12:59 PM CDT after 05/14/2017 Results * Prothrombin time with INR (04/06/2018 4:45 AM DISTRICT CAPTAIN) Only the most recent of 12 results within the time period is included. Prothrombin time 30.6 (H) 11.5 - 14.5 sec [facility] INR 3.0 [facility] Comment: [facility] The International Normalized Ratio (INR) is a therapeutic monitoring tool for patients who are stable on oral anticoagulant therapy. An INR of 2.0-3.0 is suggested for deep vein thrombosis/pulmonary embolism. Specimen Blood Performing Organization Address [facility] Phone Number [facility] [address] [place] [address] [place] [address] PATHOLOGY AND GENOMIC MEDICINE [address] * Estimated GFR (04/05/2018 4:49 AM DISTRICT CAPTAIN) Only the most recent of 12 results within the time period is included. Estimated GFR 86 mL/min/1.73 m2 [facility] Comment: [facility] CatergoryUnitsInte rpretation G1 >=90 Normal or high G2 60-89Mildly decreased [id number] Mildly to moderately decreased [id number] Moderately to severely decreased G4 15-29Severely decreased G5 <15Kidney failure The eGFR was calculated using the Chronic Kidney Disease Epidemiology Collaboration (CKD-EPI) equation. Interpretation is based on recommendations of the National Kidney Foundation-Kidney Disease Outcomes Quality Initiative (NKF-KDOQI) published in 2014. Specimen Plasma specimen Performing Organization Address [facility] Phone Number [address] [place] [address] PATHOLOGY AND [facility] MEDICINE [address] * CBC with platelet and differential (04/05/2018 4:49 AM DISTRICT CAPTAIN) Only the most recent of 11 results within the time period is included. WBC 9.84 4.50 - 11.00 k/uL [facility] RBC 4.11 (L) 4.40 - 6.00 m/uL [facility] HGB 12.6 (L) 14.0 - 18.0 g/dL [facility] HCT 37.8 (L) 41.0 - 51.0 % [facility] MCV 92.0 82.0 - 100.0 fL [facility] MCH 30.7 27.0 - 34.0 pg [facility] MCHC 33.3 31.0 - 37.0 g/dL [facility] RDW - SD 46.9 37.0 - 55.0 fL [facility] MPV 9.6 8.8 - 13.2 fL [facility] Platelet count 231 150 - 400 k/uL [facility] Nucleated RBC 0.00 /100 WBC [facility] Neutrophils 85.7 (H) 39.0 - 69.0 % [facility] Lymphocytes 9.0 (L) 25.0 - 45.0 % [facility] Monocytes 4.7 0.0 - 10.0 % [facility] Eosinophils 0.0 0.0 - 5.0 % [facility] Basophils 0.1 0.0 - 1.0 % [facility] Specimen Blood Performing Organization Address City/[facility]/Zipcode Phone Number [facility] [place] [id number] [place] [address] [place] [address] PATHOLOGY AND GENOMIC MEDICINE [facility] [id number] [place] [address] * Basic metabolic panel (04/05/2018 4:49 AM DISTRICT CAPTAIN) Only the most recent of 8 results within the time period is included. Sodium 140 135 - 148 mEq/L [facility] Potassium 5.1 (H) 3.5 - 5.0 mEq/L [facility] Chloride 104 98 - 112 mEq/L [facility] CO2 27 24 - 31 mEq/L [facility] Anion gap 9@ANIO 7 - 15 mEq/L [facility] BUN 18 6 - 20 mg/dL [facility] Creatinine 1.10 0.70 - 1.20 mg/dL [facility] Glucose 145 (H) 65 - 99 mg/dL [facility] Calcium 8.9 8.3 - 10.2 mg/dL [facility] Specimen Plasma specimen Performing Organization Address City/State/Zipcode [place] Number [place] [address] [place] [address] PATHOLOGY AND GENOMIC MEDICINE [facility] [address] [place] [address] [facility] * CT Angiogram Pe Chest (04/04/2018 5:10 PM DISTRICT CAPTAIN) Addenda Addendum by Emil Arellano MD on [...] exam. No suspicious osseous lesions are seen. [facility]-[id number] Procedure Note Interface, Radiology Results Incoming - 04/04/2018 6:21 PM DISTRICT CAPTAIN EXAM: CT ANGIOGRAM PE CHEST DATE: 04/04/2018 [...] exam. No suspicious osseous lesions are seen. [facility]-[id number] Performing Organization Address [facility] Phone Number [facility] [address] [place] [address] * XR Chest 1 Vw Portable (04/04/2018 1:17 PM DISTRICT CAPTAIN) Only the most recent of 4 results [...] costophrenic sulcus is unchanged. 4.Left cervical rib. [facility]-[id number] Procedure Note Hm Interface, Radiology Results Incoming - 04/04/2018 1:25 PM DISTRICT CAPTAIN EXAMINATION: XR CHEST 1 VW PORTABLE CLINICAL HISTORY: 57 years Male SOB CHF COPD COMPARISON: 03/06/2018 IMPRESSION: 1. There are postoperative changes related to mitral valve replacement. 2. The heart is slightly enlarged. 3. There is no evidence pulmonary edema. There are no focal consolidations. Pleural thickening at the left costophrenic sulcus is unchanged. 4. Left cervical rib. [facility]-[id number] Performing Organization Address [facility] Phone Number [facility] [address] [place] [address] * Respiratory pathogen panel (04/04/2018 11:46 AM DISTRICT CAPTAIN) Respiratory pathogen Negative for all pathogens [facility] panel tested: [facility] Negative for Adenovirus Negative [...] - Not otherwise specified Performing Organization Address [facility]/Zipcode Phone Number [facility] DEPARTMENT [address] [place] [address] PATHOLOGY AND GENOMIC MEDICINE [address] * Influenza antigen test, reflex negative to RPP (04/04/2018 11:46 AM DISTRICT CAPTAIN) Influenza antigen Negative for Influenza A/B [facility] Comment: Specimen Information Specimen Source: Nares Specimen Site: Not otherwise specified Specimen Nares - Not otherwise specified Performing Organization Address [facility] Cent[facility]ode Phone Number [facility] DEPARTMENT [id number] [place] [address] [place] [address] PATHOLOGY AND GENOMIC MEDICINE [address] * ECG ED Preliminary Interpretation - Not an Order (04/04/2018 11:31 AM DISTRICT CAPTAIN) Only the most recent of 3 results within the time period is included. Narrative Performed At Claude Interiano MD 04/04/20184:30 PM ECG ED Preliminary Interpretation - Not an Order Performed by: Claude Interiano MD Authorized by: Claude Interiano MD ECG reviewed by ED Physician in the absence of a health data analyst: yes Previous ECG: Previous ECG:Compared to current Comparison ECG info:03/06/18 Interpretation: Interpretation: normal Rate: ECG rate:86 ECG rate assessment: normal Rhythm: Rhythm: sinus rhythm Ectopy: Ectopy: none QRS: QRS axis:Normal QRS intervals:Normal Conduction: Conduction: normal ST segments: ST segments:Normal T waves: T waves: normal Other findings: Other findings: [facility] Comments: Read at 11:06 AM * Troponin (04/04/2018 11:23 AM DISTRICT CAPTAIN) Only the most recent of 6 results within the time period is included. Troponin <0.300 0.000 - 0.300 ng/mL [facility] Comment: [facility] 0.30 - 1.49 ng/mlMay indicate increased risk of acute coronary syndrome. >=1.5 ng/ml Consistent with acute myocardial infarction. The diagnostic value of a single normal or non-diagnostic result is questionable.Serial samples at 2-6 hour intervals are required to rule out acute myocardial injury. Specimen Plasma specimen Performing Organization Address [facility] Phone Number [address] [place] [address] PATHOLOGY AND [facility] MEDICINE [address] * Partial thromboplastin time, activated (04/04/2018 11:23 AM DISTRICT CAPTAIN) Only the most recent of 2 results within the time period is included. PTT 45.1 (H) 23.0 - 36.0 sec [facility] Comment: [facility] PTT therapeutic range for unfractionated heparin is 61.0-112.0 seconds which corresponds to Anti-Xa 0.3-0.7 U/ml. Specimen Blood Performing Organization Address [facility] Phone Number [address] [place] [address] PATHOLOGY AND [facility] MEDICINE [address] * B natriuretic peptide (04/04/2018 11:23 AM DISTRICT CAPTAIN) Only the most recent of 3 results within the time period is included. BNP 21 0 - 100 pg/mL [facility] Specimen Blood Performing Organization Address [facility] Phone Number [address] [place] [address] PATHOLOGY AND GENOMIC MEDICINE [address] * Hepatic function panel (04/04/2018 11:23 AM DISTRICT CAPTAIN) Albumin 3.7 3.5 - 5.0 g/dL [facility] Total bilirubin 0.3 0.0 - 1.2 mg/dL [facility] Bilirubin direct <0.1 0.0 - 0.3 mg/dL [facility] Alkaline phosphatase 74 40 - 129 U/L [facility] Protein 6.9 6.3 - 8.3 g/dL [facility] Comment: [facility] [place] 4.6-7.0 g/dL 1 week 4.4-7.6 g/dL 7 months-1year 5.1-7.3 g/dL 1-2 years5.6-7 .5 g/dL >3 years6.0-8 .0 g/dL 18-150 6.3-8.3 g/dL ALT 25 5 - 50 U/L [facility] AST 27 10 - 50 U/L [facility] Specimen Plasma specimen Performing Organization Address [facility] Phone Number [facility] DEPARTMENT OF [address] [place] [address] [place] [address] PATHOLOGY AND GENOMIC MEDICINE [address] [place] [address] [facility] * ECG 12 lead (04/04/2018 11:06 AM DISTRICT CAPTAIN) Only the most recent of 4 results within the time period is included. Ventricular rate 86 [facility] Atrial rate 86 [facility] [place] interval 152 [facility] QRSD interval 106 [...] are no longer present- Performing Organization Address City/[facility] Phone Number [facility] MUSE [address] [place] [address] * Anti Xa, unfractionated (03/10/2018 5:45 AM DISTRICT CAPTAIN) Only the most recent of 10 results within the time period is included. Anti Xa, unfractionated 0.57Comment: Therapeutic 0.30 - 0.70 U/mL [facility] Range: 0.30 - 0.70 U/mL [facility] Specimen Blood Performing Organization Address [facility] Phone Number [address] [place] [address] PATHOLOGY AND GENOMIC MEDICINE [address] * Magnesium level (03/07/2018 1:33 AM DISTRICT CAPTAIN) Only the most recent of 4 results within the time period is included. Magnesium 2.0 1.6 - 2.6 mg/dL [facility] Specimen Plasma specimen Performing Organization Address [facility] Phone Number [address] [place] [address] PATHOLOGY AND [facility] MEDICINE [address] * Comprehensive metabolic panel (03/07/2018 1:33 AM DISTRICT CAPTAIN) Only the most recent of 4 results within the time period is included. Sodium 140 135 - 148 mEq/L [facility] Potassium 5.2 (H) 3.5 - 5.0 mEq/L [facility] Chloride 101 98 - 112 mEq/L [facility] CO2 31 24 - 31 mEq/L [facility] Anion gap 8@ANIO 7 - 15 mEq/L [facility] BUN 15 6 - 20 mg/dL [facility] Creatinine 1.00 0.70 - 1.20 mg/dL [facility] Glucose 131 (H) 65 - 99 mg/dL [facility] Calcium 9.1 8.3 - 10.2 mg/dL [facility] Protein 7.0 6.3 - 8.3 g/dL [facility] Comment: [facility] [place] 4.6-7.0 g/dL 1 week 4.4-7.6 g/dL 7 months-1year 5.1-7.3 g/dL 1-2 years5.6-7 .5 g/dL >3 years6.0-8 .0 g/dL 18-150 6.3-8.3 g/dL Albumin 3.6 3.5 - 5.0 g/dL [facility] A/G ratio 1.1 0.7 - 3.8 [facility] Alkaline phosphatase 78 40 - 129 U/L [facility] AST 20 10 - 50 U/L [facility] ALT 29 5 - 50 U/L [facility] Total bilirubin 0.5 0.0 - 1.2 mg/dL [facility] Specimen Plasma specimen Performing Organization Address City/State/Zipcode Phone Number [facility] [place] [address] [place] [address] [place] [address] PATHOLOGY AND GENOMIC MEDICINE [address] [place], [place] [address] [place] [address] * Echocardiogram complete w contrast and 3D if needed (03/06/2018 5:25 PM DISTRICT CAPTAIN) Velocity Ratio (V1/V2) 0.87 m/s [facility] [...] LV EF,BP 45.76 % [facility] Willem Dover,d A2C 6.05 cm [facility] Willem Dover,d A4C 5.94 cm [facility] Willem Dover,s A2C 5.35 cm [facility] Willem Dover,s A4C 4.61 cm [facility] LV SV,A2C [...] Address City/State/Zipcode Phone Number [facility] [address] [place] [address] * Creatine kinase, total (CPK) (03/06/2018 8:59 AM DISTRICT CAPTAIN) Creatine kinase 90 39 - 308 U/L [facility] Specimen Plasma specimen Performing Organization Address [facility]/Zipcode Phone Number [address] [place] [address] PATHOLOGY AND GENOMIC MEDICINE [address] * Smear review (12/22/2017 5:18 AM CDT) Only the most recent of 3 results within the time period is included. Platelet slide review Neha adequate [facility] DEPARTMENT PATHOLOGY AND GENOMIC MEDICINE Performing Organization Address [facility] Phone Number [address] [place] [address] PATHOLOGY AND GENOMIC MEDICINE * Hemoglobin A1c (12/20/2017 4:10 AM CDT) Hemoglobin A1C 5.7 4.0 - 6.0 % [facility] DEPARTMENT OF Comment: PATHOLOGY AND GENOMIC MEDICINE Less than 6% - Goal of therapy for Type II Diabetes Less than 7%-Goal of therapy for Type I Diabetes Less than 8%-Accepta ble control for Type I or Type II Diabetes Greater than 8%-Unacceptabl e control; action indicated. ([id number]) Specimen Blood Performing Organization Address [facility] Phone Number [address] [place] [address] PATHOLOGY AND GENOMIC MEDICINE * Phosphorus level (12/19/2017 8:20 PM CDT) Phosphorus 2.5 2.4 - 4.5 mg/dL [facility] DEPARTMENT OF PATHOLOGY AND GENOMIC MEDICINE Specimen Plasma specimen Performing Organization Address [facility] Phone Number [address] [place] [address] PATHOLOGY AND GENOMIC MEDICINE * Ionized calcium (12/19/2017 8:20 PM CDT) pH 7.36 [facility] DEPARTMENT OF PATHOLOGY AND GENOMIC MEDICINE Ionized calcium 1.13 1.11 - 1.32 mmol/L [facility] OF PATHOLOGY AND GENOMIC MEDICINE Specimen Plasma specimen Performing Organization Address City/State/Zipcode Phone Number [address] [place] [address] PATHOLOGY AND GENOMIC MEDICINE * CRITICAL CARE [...] [employer] xxxxxxxxx H[employer] [place] (Home) [place] [address] Advance Directives Patient has advance care planning documents, and code status on file. For more i nformation, please contact: Thierry Almendarez [address] [place] [address] Date Inactivated Comments Code Status Date Activated 03/10/2018 8:18 PM Full Code 03/06/2018 1:42 PM Code Status decision reached by: Patient 12/22/2017 2:07 PM Full Code 12/19/2017 5:33 PM Code Status decision reached by: Patient
--- NOTE | 2018-05-15 16:26 | NUR ---
attempted to call report to Clementine and told she was busy but to call back in 5 min
--- NOTE | 2018-05-15 16:34 | NUR ---
attempted to call report to Clementine and was told she needs another 5 min she needs to wrap up with pt
[2018-05-15 17:00] VITALS: BP 135/95
--- NOTE | 2018-05-15 17:00 | NUR ---
Pt received from ER via wheelchair. Pt on oxygen 2L [place], noted SOB on exertion. Oriented to staff and surroundings. Encouraged to press call rm if help needed. Call rm within reach. Emotional support given. Will monitor
[2018-05-15 17:30] VITALS: BP 135/95
[2018-05-15 19:00] LABS: CREATINE KINASE MB 0.4 ng/mL (0-5.0)
[2018-05-15 20:00] VITALS: BP 115/76
[2018-05-16] VITALS (8 sets, daily range): BP systolic 126–141; BP diastolic 71–84
[2018-05-16] MEDS: FAMOTIDINE 20 MG/2 ML VIAL IV SCH (03:00)
[2018-05-16 06:15] LABS: BASOPHILS % 0.1 % (0.0-1.0); HEMATOCRIT 39.1 % (38.2-49.6); MEAN CORPUSCULAR HEMOGLOBIN 30.6 pg (28-32); MEAN CORPUSCULAR HGB CONC 33.2 g/dL (31-35); MONOCYTES # (AUTO) 0.9 (0.2-0.8); MONOCYTES % 5.1 % (4.4-11.3); NEUTROPHILS # (AUTO) 15.4 (2.1-6.9); NEUTROPHILS % 88.1 % (38.7-80.0); PLATELET COUNT 234 x10e3/uL (140-360); RED BLOOD COUNT 4.25 x10e6/uL (4.3-5.7); RED CELL DISTRIBUTION WIDTH 13.2 % (11.7-14.4)
[2018-05-16 06:44] LABS: CREATINE KINASE 61 IU/L (30-200)
[2018-05-16 06:44] LABS: ALANINE AMINOTRANSFERASE 13 IU/L (0-55); ALBUMIN 2.8 g/dL (3.5-5.0); ALBUMIN/GLOBULIN RATIO 0.8 (0.8-2.0); ALKALINE PHOSPHATASE 68 IU/L (40-150); ANION GAP 11.3 mmol/L (8-16); BLOOD UREA NITROGEN 15 mg/dL (7-26); BUN/CREATININE RATIO 17 (6-25); CALCIUM 9.1 mg/dL (8.4-10.2); CARBON DIOXIDE 28 mmol/L (22-29); CHLORIDE 100 mmol/L (98-107); CHOLESTEROL 109 MD/DL (0-199); EST GLOMERULAR FILTRATION RATE > 60 ML/MIN (60-); GLUCOSE 135 mg/dL (74-118); HDL CHOLESTEROL 54 MG/DL (40-60); LDL CHOLESTEROL 47 MG/DL (60-130); POTASSIUM 4.3 mmol/L (3.5-5.1); SODIUM 135 mmol/L (136-145); TRIGLYCERIDES 40 MG/DL (0-149)
--- NOTE | 2018-05-16 06:57 | History and Physical ---
PRIMARY CARE PHYSICIAN: Dr. Perdomo STOPPERER ASSEMBLER: Dr. Rendon CHIP BIN CONVEYOR TENDER: Dr. Calvillo CHIEF COMPLAINT: Shortness of breath and cough. HISTORY OF PRESENT ILLNESS: This is a 57-year-old man with a history of COPD and cough, now developing cough and shortness of breath for the past 3 days. No fever, chills, sweats. Came to the hospital for further evaluation and management. PAST MEDICAL HISTORY: COPD, congestive heart failure, type unknown, hypertension, hyperlipidemia, aortic valve disease, status post aortic valve replacement with mechanical valve? CVA, COPD and on 3.5 L of oxygen at home. PAST SURGICAL HISTORY: Aortic valve replacement with mechanical valve? ALLERGIES: PER ELECTRONIC MEDICAL RECORD. FAMILY/SOCIAL HISTORY: Patient is . No alcohol. He quit cigarettes 1 month ago. MEDICATIONS: Per electronic medical record. REVIEW OF SYSTEMS: Denies any fever, chills, sweats, nausea, vomiting, headache, chest pain, dizziness, leg pain, back pain, skin rash. PHYSICAL EXAMINATION VITAL SIGNS: Reviewed. GENERAL: A tired-appearing man resting in bed. HEENT: Anicteric. CARDIOVASCULAR: Normal S1 and S2. LUNGS: He has reduced breath sounds. He has expiratory wheezing throughout. ABDOMEN: Soft, nontender and nondistended. EXTREMITIES: No edema or calf tenderness. NEUROLOGICAL: He is alert and oriented times 3. He moves all extremities. SKIN: Dry. PSYCHIATRIC: Flat affect. LABS: Reviewed. MEDICATIONS: Reviewed. ASSESSMENT: This is a 57-year-old man with: 1. Acute exacerbation of chronic obstructive pulmonary disease. 2. Congestive heart failure, type unknown. 3. History of aortic valve replacement with mechanical valve? 4. Overweight state: Body mass index 27.1. 5. Hyperglycemia. 6. Mild anemia. PLAN 1. Will utilize steroids, antihistamines, antitussive medications, nebs, oxygen, and azithromycin for treatment of COPD. 2. Will consult pulmonary service. 3. Consult cardiology. Patient says he has a mechanical valve, although his INR is subtherapeutic. We will start him on Coumadin now and consult his science and operations officer. 4. Screen for diabetes. 5. Use antitussive medications. 6. Will defer echocardiogram to cardiology. 7. Use Pepcid while on anticoagulation. 8. Disposition. Monitor closely and follow up recommendations. Job#: [id number] RI
[2018-05-16] MEDS ORDERED: ACETAMINOPHEN 325 MG TAB PO PRN (07:00)
--- NOTE | 2018-05-16 07:21 | NUR ---
PATIENT IS AWAKE AND IN STABLE CONDITION WITH NO S/S OF RESPIRATORY DISTRESS. NO PAIN VOICED. 02 APPLIED AT 2L NC. TELEMETRY APPLIED. CALL LIGHT IS WITHIN REACH, PATIENT INSTRUCTED TO CALL FOR ASSISTANCE NEEDED.
[2018-05-16] MEDS ORDERED: ATORVASTATIN CA20 MG PO (07:45)
[2018-05-16] MEDS ORDERED: FUROSEMIDE20 MG PO (07:45)
[2018-05-16] MEDS ORDERED: ASPIR 8181 MG PO (07:45)
[2018-05-16] MEDS ORDERED: PROVENTIL HFA6.7 GM INH (07:45)
[2018-05-16] MEDS ORDERED: TRAZODONE HCL100 MG (07:45)
[2018-05-16] MEDS ORDERED: OMEPRAZOLE40 MG (07:45)
[2018-05-16] MEDS ORDERED: LISINOPRIL2.5 MG PO (07:45)
[2018-05-16] MEDS ORDERED: WARFARIN SODIU2.5 MG PO (07:45)
[2018-05-16] MEDS ORDERED: AMLODIPINE BESYL5 MG PO (07:45)
[2018-05-16] MEDS: FAMOTIDINE 20 MG TAB PO SCH ×2 (08:51→18:18)
[2018-05-16] MEDS ORDERED: ASPIRIN 81 MG ENTERIC COATED PO SCH (09:00)
[2018-05-16] MEDS ORDERED: WARFARIN SOD 5 MG TAB PO ONE (09:15)
--- NOTE | 2018-05-16 09:56 | Consultation ---
DATE OF CONSULTATION: May 16, 2018 REASON FOR CONSULTATION: History of AVR. CONSULTING PHYSICIAN: Dr. Abebe Payne HPI: This is a 57-year-old male with history of COPD, that uses home oxygen, that presented with coughing and shortness of breath. According to the patient, for the last 3 to 4 days, he has developed coughing, shortness of breath that he decided to come into the emergency room for evaluation. He has a history of tobacco abuse that he has quit smoking last month. He also uses marijuana. He has aortic stenosis with aortic valve replacement and has been on Coumadin, and INR is not therapeutic. He was recently admitted and discharged from [facility] July of last year with the same symptoms. He denied any chest pain, any dizziness, any diaphoresis, any headache, any nausea or vomiting. Troponin was negative. EKG showed normal sinus rhythm with no ST abnormalities. There was some 2 to 3 grade murmur. Chest x-ray showed findings suggestive of bilateral pulmonary venous congestion. PAST MEDICAL HISTORY: Aortic stenosis; hyperlipidemia; hypertension; GERD; COPD, on home oxygen; systolic CHF, last EF July 2017 of 44%; CVA; and elevated pulmonary artery pressure. PAST SURGICAL HISTORY: Mechanical aortic valve replacement and shoulder blade surgery. FAMILY HISTORY: Positive for hypertension. SOCIAL HISTORY: He lives at home with the . He quit smoking cigarettes last month. He uses marijuana occasionally. As stated, he quit last month also. MEDICATIONS: See med list. ALLERGIES: HE IS ALLERGIC TO CODEINE. REVIEW OF THE SYSTEMS: Negative except those mentioned above, is positive with cough and shortness of breath. PHYSICAL EXAMINATION: VITAL SIGNS: Temperature 97, heart rate 73, blood pressure 137/82, respirations 18, oxygen saturation 98% on 2 liters nasal cannula. GENERAL: He is awake, alert, and oriented x3. HEENT: Mucous membranes moist. NECK: Supple. LUNGS: Bilateral with decreased breath sounds. CARDIOVASCULAR: S1 and S2 present with 3/6 grade murmur. ABDOMEN: Soft. NEUROLOGICAL: Intact. EXTREMITIES: With no edema. LABS: Sodium 135, potassium 4.3, chloride 100, CO2 28, BUN 15, creatinine 0.90, glucose 135. White blood cells 17.4, hemoglobin is 13.0, hematocrit 39.1, platelet 176,000. PTT 38.1, INR 1.33. IMPRESSION: 1. Qdwbf-ct-[id number] systolic congestive heart failure. 2. Acute chronic obstructive pulmonary disease exacerbation. 3. Hyperlipidemia. 4. Elevated white blood cell. 5. History of aortic valve replacement. 6. Nontherapeutic INR. 7. Obesity. ASSESSMENT AND PLAN: 1. Will go ahead and get an echocardiogram to reassess the LV and the valve function. 2. Will continue IV diuresis. 3. He is on antibiotic. 4. Will continue warfarin and give him an extra dose today and continue Lovenox until INR is therapeutic. 5. Will put him on fluid restriction, low-salt diet, and daily I's and O's. Further cardiac workup pending clinical course. Thank you for this consultation. Dictated by: Mindy Boyce NP Job#: [id number]
[2018-05-16] MEDS ORDERED: ALBUTEROL SULFATE HFA 8GM INHALATION AEROSOL INH PRN (13:00)
[2018-05-16] MEDS ORDERED: HYDROCODONE/CHLORPHENIRAMINE 5 ML LIQCR PO PRN (13:15)
[2018-05-16] MEDS ORDERED: SODIUM CHLORIDE 0.9% 250ML 250 ML ONE (14:24)
[2018-05-16] MEDS: CEFTRIAXONE SOD 1 GM/NS 50 ML 50 ML IV SCH (14:31)
[2018-05-16] MEDS: AZITHROMYCIN 500MG/NS 250 ML 250 ML IV SCH (15:17)
--- NOTE | 2018-05-16 15:23 | Consultation ---
DATE OF CONSULTATION: PULMONARY CRITICAL CARE CONSULTATION CHIEF COMPLAINT: Dyspnea, cough and wheezing. HISTORY OF PRESENT ILLNESS: The patient is a 57-year-old man with a history of aortic stenosis requiring valve replacement and prior COPD. He uses inhalers at home, as well as nebulizers on an as needed basis. He came to the hospital complaining of worsening dyspnea for 3 to 4 days. He noticed some cough and chest congestion. His cough is productive of discolored phlegm. He also notes some wheezing. He is unsure about fevers, but thinks he may have had chills at night. PAST SURGICAL HISTORY 1. Status post aortic valve replacement. 2. Status post shoulder surgery. PAST MEDICAL HISTORY 1. COPD as noted above. 2. Aortic stenosis requiring prior valve replacement. 3. Pulmonary hypertension secondary to heart disease. 4. Congestive heart failure. SOCIAL HISTORY: The patient recently quit smoking. He lives with his . He is not a drinker. FAMILY HISTORY: Positive for hypertension. ALLERGIES: THE PATIENT IS ALLERGIC TO CODEINE. REVIEW OF SYSTEMS: The patient thinks he may have had some fevers. He denies any headache. He has no neck pain. He does note some left-sided thoracic pain that is worse with inspiration. He notes some dyspnea and some cough. He notes no anterior chest pain. There is no nausea or vomiting. He has no abdominal pain. There is no leg edema or calf tenderness. He has no cyanosis or clubbing. He has no focal neurological complaints. PHYSICAL EXAMINATION VITALS: The patient is afebrile. The blood pressure is 141/84. The saturation is 95% on 3 L. Pulse is 84. HEENT: Shows no facial swelling or erythema. The nasal mucosa is normal. The oropharynx is normal. LYMPHATIC: Shows no submandibular, cervical or supraclavicular adenopathy. CARDIAC: Reveals a regular rate and rhythm with a normal S1 and S2. LUNGS: Auscultation of the lungs reveals wheezing bilaterally. There is some decreased breath sounds at the left base. ABDOMEN: Soft and nontender. There is no rebound or guarding. EXTREMITIES: Shows no leg edema or calf tenderness. There is no cyanosis or clubbing. SKIN: Shows no rashes. NEUROLOGIC: Shows no focal abnormalities. RADIOGRAPHIC DATA: Chest x-ray shows some opacity in the left lower lobe and possible some effusion. There is some cephalization. LABORATORY DATA: The BUN to creatinine ratio is 15 to 0.9. The electrolytes are within normal limits. The BMP is normal. Cardiac enzymes are normal. The patient has a white blood cell count of 17.4 and a hemoglobin of 13. IMPRESSIONS 1. Community-acquired pneumonia with sepsis present on admission. 2. Chronic obstructive pulmonary disease with acute exacerbation. 3. Chronic systolic congestive heart failure. 4. Prior aortic valve replacement. PLAN 1. Continue IV antibiotics. 2. CT scan of the chest with IV contrast. 3. Continue current cardiac regimen. 4. Continue warfarin. 5. Rapid flu and urine for legionella. Job#: [id number] RI
[2018-05-16] MEDS: ENOXAPARIN SOD INJ 40 MG/0.4 ML SYR SC SCH (16:32)
--- NOTE | 2018-05-16 16:47 | NUR ---
CASE MANAGEMENT INITIAL ASSESSMENT Shake Splitter to bedside to discuss plan of care with patient/family. CM/SW role and care transitions discussed. Anticipated discharge plan discussed along with duration of care. CM/SW discussed patients right to make decisions in care. CM/SW work hours given. 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 DISCUSSED PROVIDER PICKING PT UP AND [facility] TRANSPORTATION. Referral Needs: NONE Education Needs: NONE IMM/COULTER given and signed (if applicable): N/A Goal for discharge: RETURN HOME CM/SW left business card at the bedside with contact information. Name and number was also written on the patients whiteboard. Patient verbalized understanding of discussion. CM will follow-up with ongoing discharge and transition of care needs.
[2018-05-16] MEDS ORDERED: WARFARIN SOD 2 MG TAB PO SCH (17:00)
[2018-05-16] MEDS ORDERED: WARFARIN SOD 5 MG TAB PO SCH ×4 (17:00)
--- NOTE | 2018-05-16 18:18 | NUR ---
PATIENT BACK FROM CT- PATIENT ABLE TO EAT AGAIN AND HAS RECEIVED EVENING MEDICATIONS WITH RN.
--- NOTE | 2018-05-16 19:18 | NUR ---
PATIENT IS IN STABLE CONDITION WITH NO S/S OF RESPIRATORY DISTRESS-NO PAIN VOICED. CALL LIGHT IS WITHIN REACH, PATIENT INSTRUCTED TO CALL FOR ASSISTANCE NEEDED. REPORT GIVEN TO ONCOMING NURSE.
[2018-05-16] MEDS ORDERED: IOPAMIDOL 370 MG/ML 200 ML INFUS..BTL INJ ONE (19:21)
[2018-05-16] MEDS ORDERED: SODIUM CHLORIDE 0.9% 50ML 50 ML ONE (19:21)
--- NOTE | 2018-05-16 19:22 | NUR ---
PT IS RESTING IN BED. NO RESPIRATORY DISTRESS NOTED. BED IN THE LOWEST POSITION, LOCKED, AND CALL LIGHT WITHIN REACH. WILL CONTINUE TO MONITOR.
[2018-05-16] MEDS: METHYLPREDNISOLONE SOD SUCC 125 MG/2ML VIAL IV SCH (20:27)
[2018-05-16] MEDS: ATORVASTATIN 40 MG TAB PO SCH (20:27)
[2018-05-16] MEDS ORDERED: ATORVASTATIN 20 MG TAB PO SCH (21:00)
--- NOTE | 2018-05-16 22:25 | Diagnostic Imaging Report ---
EXAM: CT Chest WITH contrast 05/16/2018 1:02 PM INDICATION: LLL infiltrate Effusion COMPARISON: Chest x-ray 03/14/2019 TECHNIQUE: Chest was scanned utilizing a multidetector helical scanner from the lung apex through the level of the adrenal glands without administration of IV contrast. Coronal and sagittal reformations were obtained. Routine protocol was performed. IV CONTRAST: 100 mL of Omnipaque 300 COMPLICATIONS: None RADIATION DOSE: Total DLP: 593.8 mGy*cm Estimated effective dose: (DLP x 0.014 x size factor) mSv Dose modulation, iterative reconstruction, and/or weight based adjustment of the mA/kV was utilized to reduce the radiation dose to as low as reasonably achievable. FINDINGS: LINES/ TUBES: None. LUNGS AND AIRWAYS: Centrilobular emphysematous changes with multiple bulla in the anterior medial right upper lobe. Scattered patchy and groundglass opacities in the lung bases, most prominent in the left lower lobe. There is bronchial wall thickening as well as mucous plugging, most prominent in the left lower lobe. Areas of round atelectasis are present in both lower lobes. Right middle lobe 6 mm subpleural nodule (series 2 image 85). PLEURA: Volume loss in the left lung with mild smooth appearing pleural thickening. No pleural effusion or pneumothorax. HEART AND MEDIASTINUM: The thyroid gland is normal. No mediastinal, hilar or axillary lymphadenopathy. The heart is normal in size.. Mitral valve prosthesis. There is no pericardial effusion. Main pulmonary artery upper normal in size measuring 3.1 cm. Ascending aorta measures 4.1 cm, mildly ectatic. Prominent mediastinal nodes measuring up to 1.1 cm in the precarinal region. UPPER ABDOMEN: Unremarkable. BONES: Left first rib defect anteriorly. There are degenerative changes in the thoracic spine. SOFT TISSUES: Gynecomastia. IMPRESSION: Centrilobular emphysematous changes with bronchial wall thickening and mucous plugging suggestive of bronchitis. Patchy and groundglass opacities, most prominent in the left lower lobe concerning for superimposed infection. Signed by: DR. Stan Evans MD on 05/16/2018 10:21 PM
[2018-05-17] VITALS (7 sets, daily range): BP systolic 122–147; BP diastolic 71–84
[2018-05-17 06:31] LABS: BASOPHILS % 0.1 % (0.0-1.0); HEMATOCRIT 38.3 % (38.2-49.6); HEMOGLOBIN 12.5 g/dL (14.0-18.0); LYMPHOCYTES # (AUTO) 0.7 (1.0-3.2); MEAN CORPUSCULAR HEMOGLOBIN 29.8 pg (28-32); MEAN CORPUSCULAR HGB CONC 32.6 g/dL (31-35); MEAN CORPUSCULAR VOLUME 91.4 fL (81-99); MONOCYTES # (AUTO) 0.4 (0.2-0.8); MONOCYTES % 3.2 % (4.4-11.3); NEUTROPHILS # (AUTO) 10.7 (2.1-6.9); NEUTROPHILS % 90.1 % (38.7-80.0); PLATELET COUNT 261 x10e3/uL (140-360); RED BLOOD COUNT 4.19 x10e6/uL (4.3-5.7); RED CELL DISTRIBUTION WIDTH 13.2 % (11.7-14.4)
[2018-05-17 06:34] LABS: INR 1.32; PROTHROMBIN TIME 17.5 seconds (11.9-14.5)
--- NOTE | 2018-05-17 06:38 | NUR ---
IM- progress Note O/N; no events REVIEW OF SYSTEMS: Denies any fever, chills, sweats, nausea, vomiting, headache, chest pain, dizziness, leg pain, back pain, skin rash. PHYSICAL EXAMINATION VITAL SIGNS: Reviewed. GENERAL: A tired-appearing man resting in bed. HEENT: Anicteric. CARDIOVASCULAR: Normal S1 and S2. LUNGS: He has reduced breath sounds. He has expiratory wheezing throughout. ABDOMEN: Soft, nontender and nondistended. EXTREMITIES: No edema or calf tenderness. NEUROLOGICAL: He is alert and oriented times 3. He moves all extremities. SKIN: Dry. PSYCHIATRIC: Flat affect. LABS: Reviewed. MEDICATIONS: Reviewed. ASSESSMENT: This is a 57-year-old man with: 1. Acute exacerbation of chronic obstructive pulmonary disease. 2. Congestive heart failure, type unknown. 3. History of aortic valve replacement with mechanical valve? 4. Overweight state: Body mass index 27.1. 5. Hyperglycemia. 6. Mild anemia. PLAN 1. Will utilize steroids, antihistamines, antitussive medications, nebs, oxygen, and azithromycin for treatment of COPD. 2. Will consult pulmonary service. 3. Consult cardiology. Patient says he has a mechanical valve, although his INR is subtherapeutic. We will start him on Coumadin now and consult his assistant coach. 4. Screen for diabetes. 5. Use antitussive medications. 6. Will defer echocardiogram to cardiology. 7. Use Pepcid while on anticoagulation. 8. Disposition. Monitor closely and follow up recommendations. 05/17 CT shows emphysematous changes and mucus plugging; cont medications Abebe Payne MD, PhD.
[2018-05-17 06:41] LABS: ALANINE AMINOTRANSFERASE 19 IU/L (0-55); ALBUMIN 2.9 g/dL (3.5-5.0); ALBUMIN/GLOBULIN RATIO 0.9 (0.8-2.0); ALKALINE PHOSPHATASE 65 IU/L (40-150); ANION GAP 10.6 mmol/L (8-16); BLOOD UREA NITROGEN 18 mg/dL (7-26); BUN/CREATININE RATIO 21 (6-25); CALCIUM 8.9 mg/dL (8.4-10.2); CARBON DIOXIDE 27 mmol/L (22-29); CHLORIDE 103 mmol/L (98-107); CREATININE, SERUM 0.85 mg/dL (0.72-1.25); EST GLOMERULAR FILTRATION RATE > 60 ML/MIN (60-); GLUCOSE 133 mg/dL (74-118); POTASSIUM 4.6 mmol/L (3.5-5.1); SODIUM 136 mmol/L (136-145)
[2018-05-17] MEDS: FAMOTIDINE 20 MG TAB PO SCH ×2 (08:19→16:15)
[2018-05-17] MEDS: METHYLPREDNISOLONE SOD SUCC 125 MG/2ML VIAL IV SCH ×2 (08:19→20:34)
[2018-05-17] MEDS: ASPIRIN 81 MG CHEW TAB PO SCH (08:19)
[2018-05-17] MEDS: LISINOPRIL 2.5 MG TAB PO SCH (08:20)
[2018-05-17] MEDS: AMLODIPINE BESYLATE 5 MG TAB PO SCH (08:20)
[2018-05-17] MEDS: PANTOPRAZOLE SOD 40 MG TABEC PO SCH (08:20)
--- NOTE | 2018-05-17 08:53 | NUR ---
DR. MCCRAY AND N.P. ON THE UNIT- COUMADIN ORDERED TO BE PLACED ON HOLD BUT OKAY TO ADMINISTER LOVENOX TODAY.
--- NOTE | 2018-05-17 09:00 | Progress Note ---
DATE: PULMONARY/CRITICAL CARE PROGRESS NOTE SUBJECTIVE: The patient reports some pain in the neck and trapezius area on the left side. It is worse when he flexes his neck. He still notes some wheezing and some cough. He does not complain of fevers. OBJECTIVE VITAL SIGNS: The patient is afebrile. The blood pressure is 130/71, and the saturation is 95% on 2 liters. HEENT: No facial swelling or erythema. The nasal mucosa is normal. The oropharynx is normal. LYMPHATIC: No submandibular, cervical or supraclavicular adenopathy. CARDIAC: Regular rate and rhythm with normal S1 and S2. LUNGS: Auscultation of the lungs reveals bilateral wheezes. There is a prolonged expiratory phase. ABDOMEN: Soft, nontender. There is no rebound or guarding. EXTREMITIES: No leg edema or calf tenderness. There is no cyanosis or clubbing. SKIN: Examination shows no rashes. NEUROLOGIC: No focal abnormalities. RADIOGRAPHIC DATA: CT scan of the chest shows emphysema and COPD. There is some opacity in the left lower lobe suggestive of superimposed pneumonia. IMPRESSION 1. Community-acquired pneumonia with sepsis present on admission. 2. Chronic obstructive pulmonary disease with acute exacerbation. 3. Chronic systolic congestive heart failure. 4. Prior aortic valve replacement. PLAN 1. Continue current antibiotics. 2. Continue Solu-Medrol and bronchodilators. 3. Continue warfarin. 4. Physical therapy. 5. [place] for pain. The patient reports an allergic reaction to codeine but states that he has taken hydrocodone before with no problems. Job#: [id number]
[2018-05-17] MEDS: CEFTRIAXONE SOD 1 GM/NS 50 ML 50 ML IV SCH (12:43)
[2018-05-17] MEDS: HYDROCODONE/APAP 10MG-325MG TAB PO PRN ×2 (12:58→20:37)
--- NOTE | 2018-05-17 13:23 | NUR ---
Nutrition Screen Note RD Recommendation for Physician: - Rec cardiac diet with vitamin K restriction as medically appropriate Plan of Care: RD following, monitoring for tolerance and adequacy Nutrition reason for involvement: Diagnosis, pt request Primary Diagnose(s): 1. Community-acquired pneumonia with sepsis present on admission. 2. Chronic obstructive pulmonary disease with acute exacerbation. PMH: COPD, congestive heart failure, type unknown, hypertension, hyperlipidemia, aortic valve disease, status post aortic valve replacement with mechanical valve? CVA, COPD and on 3.5 L of oxygen at home Ht: 75in Wt: 217lb BMI: 27.1kg/m2 IBW: 196lb RD Assessment: (05/17) Chart reviewed. Labs and meds reviewed. 57yo M, who was admitted for cough and SOB. Pt is currently on IV abx and Coumadin. 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 Pt denied chewing/swallowing problems and nausea/vomiting. Pt reported great appetite and asked for double portion of meals. No GI complains reported. LBM 05/17. Will continue to monitor and follow. Current Diet: cardiac diet Malnutrition Evaluation (05/17/2018) The patient does not meet criteria for a specified degree of malnutrition at this time. Will re-evaluate at follow-up as appropriate. Diet Education Needs Assessment: Diet education not indicated. Nutrition Care Level: low Signed: Sena Shaikh, , RD, LD
[2018-05-17] MEDS: AZITHROMYCIN 500MG/NS 250 ML 250 ML IV SCH (14:02)
[2018-05-17] MEDS: ENOXAPARIN SOD INJ 40 MG/0.4 ML SYR SC SCH (16:15)
--- NOTE | 2018-05-17 19:21 | NUR ---
PATIENT IS IN STABLE CONDITION WITH NO S/S OF RESPIRATORY DISTRESS. NO PAIN VOICED. TELEMETRY APPLIED. PATIENT IS AWARE HE WILL BE NPO AFTER MIDNIGHT. CALL LIGHT IS WITHIN REACH, PATIENT INSTRUCTED TO CALL FOR ASSISTANCE NEEDED. REPORT GIVEN TO ONCOMING NURSE.
--- NOTE | 2018-05-17 19:23 | NUR ---
PT IS RESTING IN BED. NO RESPIRATORY DISTRESS NOTED. BED IN THE LOWEST POSITION, LOCKED, AND CALL LIGHT WITHIN REACH. WILL CONTINUE TO MONITOR.
[2018-05-17] MEDS: ATORVASTATIN 40 MG TAB PO SCH (20:34)
[2018-05-18] VITALS: BP 106/57
[2018-05-18 04:00] VITALS: BP 109/60
--- NOTE | 2018-05-18 06:30 | NUR ---
IM- progress Note O/N; no events REVIEW OF SYSTEMS: Denies any fever, chills, sweats, nausea, vomiting, headache, chest pain, dizziness, leg pain, back pain, skin rash. PHYSICAL EXAMINATION VITAL SIGNS: Reviewed. GENERAL: A tired-appearing man resting in bed. HEENT: Anicteric. CARDIOVASCULAR: Normal S1 and S2. LUNGS: He has reduced breath sounds. He has expiratory wheezing throughout. ABDOMEN: Soft, nontender and nondistended. EXTREMITIES: No edema or calf tenderness. NEUROLOGICAL: He is alert and oriented times 3. He moves all extremities. SKIN: Dry. PSYCHIATRIC: Flat affect. LABS: Reviewed. MEDICATIONS: Reviewed. ASSESSMENT: This is a 57-year-old man with: 1. Acute exacerbation of chronic obstructive pulmonary disease. 2. Congestive heart failure, type unknown. 3. History of aortic valve replacement with mechanical valve? 4. Overweight state: Body mass index 27.1. 5. Hyperglycemia. 6. Mild anemia. PLAN 1. Will utilize steroids, antihistamines, antitussive medications, nebs, oxygen, and azithromycin for treatment of COPD. 2. Will consult pulmonary service. 3. Consult cardiology. Patient says he has a mechanical valve, although his INR is subtherapeutic. 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 4. Screen for diabetes. 5. Use antitussive medications. 6. Will defer echocardiogram to cardiology. 7. Use Pepcid while on anticoagulation. 8. Disposition. Monitor closely and follow up recommendations. 05/17 CT shows emphysematous changes and mucus plugging; cont medications 05/18 cont care. [facility] pending; check Hba1c Abebe Payne MD, PhD.
[2018-05-18 08:00] VITALS: BP 113/67
[2018-05-18] MEDS: LISINOPRIL 2.5 MG TAB PO SCH (09:00)
[2018-05-18] MEDS: AMLODIPINE BESYLATE 5 MG TAB PO SCH (09:00)
[2018-05-18] MEDS: ASPIRIN 81 MG CHEW TAB PO SCH (09:00)
[2018-05-18] MEDS: METHYLPREDNISOLONE SOD SUCC 125 MG/2ML VIAL IV SCH ×2 (09:52→21:00)
[2018-05-18] MEDS: PANTOPRAZOLE SOD 40 MG TABEC PO SCH (09:52)
[2018-05-18] MEDS: FAMOTIDINE 20 MG TAB PO SCH ×2 (09:52→16:41)
[2018-05-18] MEDS: HYDROCODONE/APAP 10MG-325MG TAB PO PRN ×2 (10:03→18:29)
[2018-05-18] MEDS ORDERED: MIDAZOLAM HCL 2 MG/2 ML VIAL ONE (11:34)
[2018-05-18] MEDS ORDERED: LIDOCAINE HCL 2% LOCAL 20 ML VIAL ONE (11:34)
[2018-05-18] MEDS ORDERED: FENTANYL CITRATE/PF 100MCG/2 ML INJ ONE (11:34)
[2018-05-18] MEDS ORDERED: IOPAMIDOL 370 MG/ML 200 ML INFUS..BTL INJ ONE (11:34)
[2018-05-18] MEDS ORDERED: HEPARIN SOD/SOD CHLORIDE 2,000 ML ONE (11:34)
[2018-05-18] MEDS ORDERED: SODIUM CHLORIDE 0.9% 1000ML 1,000 ML ONE (11:35)
--- NOTE | 2018-05-18 11:50 | NUR ---
Pt left for heart cath at this time. Pt is aox3 and able to verbalize needs. Denies any pain at this time. Report given to heart cath nurse.
[2018-05-18 12:29] VITALS: BP 136/81
--- NOTE | 2018-05-18 13:00 | NUR ---
Pt returned from screedman/laborer at this time. Insertion site to right groin dressing is dry and intact. Area is soft and nontender. Received orders from Dr. Rendon for bedrest for 6hours, NS 50ml/hr x5 hours. Labs CBC, BMP in am. Pt is aox4 and able to verbalize needs. Previous diet has been resumed.
--- NOTE | 2018-05-18 13:33 | Operative Report ---
DATE OF PROCEDURE: May 18, 2018 PROCEDURES: 1. Left heart catheterization. 2. Selective coronary angiogram. 3. Left ventriculogram. INDICATIONS: Cardiomyopathy and CHF. BLOOD LOSS: 2 mL. ANESTHESIA: Two percent lidocaine for local anesthesia. Fentanyl and Versed for conscious sedation. DESCRIPTION OF PROCEDURE: After informed consent, the patient was brought to the cardiac catheterization laboratory and placed on the table. Both groins were painted and draped in a sterile fashion. Lidocaine injected in the right groin for local anesthesia. Right femoral artery was accessed by Seldinger technique, and a 5-Georgian sheath was placed in the right femoral artery. Left main artery was cannulated using a JL4 5-Georgian catheter. Coronary angiogram was performed. Images obtained in multiple views. Right coronary artery was cannulated using a 3DRC 5-Georgian catheter. Coronary angiogram was performed and images obtained in multiple views. LV-gram was performed using a pigtail catheter. Patient tolerated the procedure without any complications. REPORT LEFT MAIN: Normal caliber. No significant stenosis. LEFT ANTERIOR DESCENDING: Normal caliber. It is tortuous, and has luminal irregularities. The 1st diagonal branch has about a 20% proximal lesion. LEFT CIRCUMFLEX: Normal caliber with luminal irregularities. RIGHT CORONARY ARTERY: Normal caliber with luminal irregularities. There is a 20% mid-lesion. LV-GRAM: Diffuse hyperkinesis of the left ventricle is noted. Overall ejection fraction is 40%. HEMODYNAMICS: Aortic pressure 129/80. LV pressure 139/7. LVEDP is 18. PLAN: Medical management. Job#: [id number] [place]
[2018-05-18] MEDS: AZITHROMYCIN 500MG/NS 250 ML 250 ML IV SCH (15:24)
[2018-05-18] MEDS: CEFTRIAXONE SOD 1 GM/NS 50 ML 50 ML IV SCH (15:24)
[2018-05-18 16:00] VITALS: BP 133/82
[2018-05-18] MEDS: ENOXAPARIN SOD INJ 40 MG/0.4 ML SYR SC SCH (16:41)
--- NOTE | 2018-05-18 19:15 | NUR ---
patient recieved awake, alert, sitting up in bed. no c/o pain noted. dressing too right groin c,d,i. pm assessment complete. patient instructed to call for assistance when needed.
[2018-05-18 20:00] VITALS: BP 128/83
[2018-05-18] MEDS: ATORVASTATIN 40 MG TAB PO SCH (21:00)
[2018-05-19] VITALS: BP 135/76
[2018-05-19 04:00] VITALS: BP 153/85
[2018-05-19 06:04] LABS: BASOPHILS % 0.1 % (0.0-1.0); HEMATOCRIT 38.7 % (38.2-49.6); HEMOGLOBIN 13.3 g/dL (14.0-18.0); LYMPHOCYTES % 6.7 % (18.0-39.1); MEAN CORPUSCULAR HEMOGLOBIN 30.6 pg (28-32); MEAN CORPUSCULAR HGB CONC 34.4 g/dL (31-35); MONOCYTES # (AUTO) 0.4 (0.2-0.8); MONOCYTES % 2.5 % (4.4-11.3); NEUTROPHILS # (AUTO) 13.3 (2.1-6.9); PLATELET COUNT 298 x10e3/uL (140-360); RED BLOOD COUNT 4.35 x10e6/uL (4.3-5.7); RED CELL DISTRIBUTION WIDTH 13.1 % (11.7-14.4)
[2018-05-19 06:25] LABS: ANION GAP 11.5 mmol/L (8-16); BLOOD UREA NITROGEN 19 mg/dL (7-26); BUN/CREATININE RATIO 21 (6-25); CALCIUM 8.9 mg/dL (8.4-10.2); CARBON DIOXIDE 29 mmol/L (22-29); CHLORIDE 103 mmol/L (98-107); EST GLOMERULAR FILTRATION RATE > 60 ML/MIN (60-); GLUCOSE 124 mg/dL (74-118); POTASSIUM 4.5 mmol/L (3.5-5.1); SODIUM 139 mmol/L (136-145)
[2018-05-19 08:00] VITALS: BP 135/88
[2018-05-19] MEDS: ASPIRIN 81 MG CHEW TAB PO SCH (08:01)
[2018-05-19] MEDS: LISINOPRIL 2.5 MG TAB PO SCH (08:01)
[2018-05-19] MEDS: METHYLPREDNISOLONE SOD SUCC 125 MG/2ML VIAL IV SCH (08:01)
[2018-05-19] MEDS: PANTOPRAZOLE SOD 40 MG TABEC PO SCH (08:01)
[2018-05-19] MEDS: FAMOTIDINE 20 MG TAB PO SCH (08:01)
[2018-05-19] MEDS: AMLODIPINE BESYLATE 5 MG TAB PO SCH (08:01)
--- NOTE | 2018-05-19 08:03 | NUR ---
Discharge summary: ASSESSMENT: This is a 57-year-old man with: 1. Acute exacerbation of chronic obstructive pulmonary disease. 2. Congestive heart failure, type unknown. 3. History of aortic valve replacement with mechanical valve? 4. Overweight state: Body mass index 27.1. 5. Hyperglycemia. 6. Mild anemia. PLAN 1. Will utilize steroids, antihistamines, antitussive medications, nebs, oxygen, and azithromycin for treatment of COPD. 2. Will consult pulmonary service. 3. Consult cardiology. Patient says he has a mechanical valve, although his INR is subtherapeutic. 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 4. Screen for diabetes. 5. Use antitussive medications. 6. Will defer echocardiogram to cardiology. 7. Use Pepcid while on anticoagulation. 8. Disposition. Monitor closely and follow up recommendations. 05/17 CT shows emphysematous changes and mucus plugging; cont medications 05/18 cont care. [facility] pending; check Hba1c 05/19 Had [facility]- no sig CAD. LVEF 40%. Systolic CHF. d.c home Stable f/u PCP 1 week; Ben 2 weeks 2 weeks d/c time>35mins Abebe Payne MD, PhD.
[2018-05-19] MEDS: HYDROCODONE/APAP 10MG-325MG TAB PO PRN (08:09)
[2018-05-19] MEDS ORDERED: PREDNISONE20 MG PO (08:37)
[2018-05-19] MEDS ORDERED: WARFARIN SODIUM3 MG PO (08:37)
[2018-05-19] MEDS ORDERED: ZITHROMAX500 MG PO (08:37)
--- NOTE | 2018-05-19 13:00 | NUR ---
Spoke with Dr. Calvillo and Dr. Milligan and both state that pt is ok to discharge from their standpoint. Notified Dr. Payne and states ok to proceed with discharge home. Discharge instructions given to pt and verbalized understanding of medication administration and follow up appt.
== END 2018-05-19 13:18 | disposition home or self-care (01) | DRG 871 ==
LOC: ER 10:19 → ERHOLD 15:06 → MED/SURG3 16:55
PROVIDERS: ADMIT Internal Medicine; ATTEND Internal Medicine
PROC: B2111ZZ Fluoroscopy of Multiple Coronary Arteries using Low Osmolar Contrast (ICD-10-PCS; principal; 2018-05-18)
PROC: B2151ZZ Fluoroscopy of Left Heart using Low Osmolar Contrast (ICD-10-PCS; principal; 2018-05-18)
PROC: 4A023N7 Measurement of Cardiac Sampling and Pressure, Left Heart, Percutaneous Approach (ICD-10-PCS; principal; 2018-05-18)
DX: A41.9 Sepsis, unspecified organism (principal); J18.9 Pneumonia, unspecified organism; I50.23 Acute on chronic systolic (congestive) heart failure; J44.1 Chronic obstructive pulmonary disease with (acute) exacerbation; J44.0 Chronic obstructive pulmonary disease with (acute) lower respiratory infection; I11.0 Hypertensive heart disease with heart failure; Z86.73 Personal history of transient ischemic attack (TIA), and cerebral infarction without residual deficits; Z79.01 Long term (current) use of anticoagulants; Z95.2 Presence of prosthetic heart valve; Z68.27 Body mass index [BMI] 27.0-27.9, adult; D64.9 Anemia, unspecified; R73.9 Hyperglycemia, unspecified; I27.22 Pulmonary hypertension due to left heart disease; Z87.01 Personal history of pneumonia (recurrent); E66.9 Obesity, unspecified; E03.9 Hypothyroidism, unspecified; I25.10 Atherosclerotic heart disease of native coronary artery without angina pectoris; F17.210 Nicotine dependence, cigarettes, uncomplicated; F12.90 Cannabis use, unspecified, uncomplicated; I35.0 Nonrheumatic aortic (valve) stenosis; R79.1 Abnormal coagulation profile
CPT/HCPCS: 36415; 71045; 71260; 80048; 80053; 80061; 81001; 82550; 82553; 82948; 83036; 83605; 83735; 83880; 84484; 85025; 85610; 85730; 87040; 87086; 87400; 87449; 93005; 93306; 93458; 94640; 94660; 99285; J0456; J0696; J1650; J2001; J2250; J2930; J7030; J7050; Q9967